=== PATIENT | female | born 1945 | race Asian ===

== ENCOUNTER 2020-09-28 09:21 | Outpatient (REF) | payer MEDICARE, OTHER, SELFPAY ==
[2020-09-28 11:23] LABS: MANUAL DIFF FLAG NO
[2020-09-28 11:40] LABS: Basophils Percent Auto 0.7 % (0-2); Eosinophils Absolute Auto 0.2 X10*3/uL (0.0-0.4); Hematocrit 35.8 % (37-47); Hemoglobin 11.3 g/dl (12.0-16.0); Imm Gran Abs Auto 0.02 X10*3/uL (0.00-0.03); Imm Gran Pct Auto 0.4 % (0.0-0.4); Lymphocytes Absolute Auto 1.7 X10*3/uL (1.2-4.9); Lymphocytes Percent Auto 30.5 % (20-40); Mean Corpuscular HGB Conc 31.6 g/dl (31.0-35.0); Mean Corpuscular Hemoglobin 27.2 pg (27.0-33.0); Mean Corpuscular Volume 86.3 fL (80-98); Mean Platelet Volume 10.5 fL (9.4-12.3); Monocytes Absolute Auto 0.4 X10*3/uL (0.1-1.2); Monocytes Percent Auto 7.2 % (2-11); Neutrophils Absolute Auto 3.3 X10*3/uL (2.0-8.3); Neutrophils Percent Auto 58.2 % (45-73); Platelet Count 318 X10*3/uL (160-400); Red Blood Count 4.15 X10*6/uL (4.20-5.50); Red Cell Distribution Width 13.4 % (11.0-16.0); White Blood Count 5.7 X10*3/uL (4.8-10.8)
[2020-09-28 11:55] LABS: Alanine Aminotransferase 21 U/L (0-31); Albumin Level 4.2 g/dL (3.5-5.0); Alkaline Phosphatase 110 U/L (39-117); Anion Gap 13 (12-20); Aspartate Amino Transferase 23 U/L (5-31); Bilirubin Total 0.6 mg/dL (0.0-1.0); Blood Urea Nitrogen 10 mg/dL (9-16); Calcium 9.6 mg/dL (8.4-10.2); Carbon Dioxide 26 mmol/L (22-29); Chloride 106 mmol/L (96-108); Cholesterol 197 mg/dL; Estimated Glomerular Filt Rate > 60; Glucose Fasting 89 mg/dL (60-99); HDL Cholesterol 73 mg/dL; LDL Cholesterol Calculated 107 mg/dl; Potassium 4.8 mmol/L (3.3-5.1); Sodium 140 mmol/L (135-145); Total Protein 7.1 g/dL (6.5-8.0); Triglycerides 89 mg/dL
[2020-09-28 12:17] LABS: Thyroid Stimulating Hormone 1.15 uIU/mL (0.32-4.0)
== END 2020-09-28 09:22 | disposition home or self-care (01) ==
LOC: HO.HMGCLDS 09:21
PROVIDERS: PCP Internal Medicine; Visit Provider Internal Medicine
DX: F41.8 Other specified anxiety disorders (principal); I10 Essential (primary) hypertension
CPT/HCPCS: 36415; 80053; 80061; 84443; 85025

== ENCOUNTER 2021-04-22 08:51 | Outpatient (REF) | payer MEDICARE, OTHER, SELFPAY ==
[2021-04-22 11:34] LABS: COVID-19 Test Positive (Negative)
== END 2021-04-22 08:52 | disposition home or self-care (01) ==
LOC: HO.LAB 08:51
PROVIDERS: Visit Provider Internal Medicine
DX: Z20.822 Contact with and (suspected) exposure to COVID-19 (principal)
CPT/HCPCS: 36415; 87635; C9803

== ENCOUNTER 2021-05-07 10:36 | Outpatient (REF) | payer MEDICARE, OTHER, SELFPAY ==
--- NOTE | ~2021-05-07 | XR_ITS ---
EXAMINATION: SINUS. CHEST. CLINICAL INFORMATION: Covid 19 condition. Pain. COMPARISON: None TECHNIQUE: 4 views sinus and 2 views chest. FINDINGS: Sinuses: There is normal aeration of paranasal sinuses without air-fluid level or mucoperiosteal thickening. The bony sinus foley are intact. The nasal septum appears midline with patent nasopharyngeal airway. Bilateral mastoid sinuses are clear. The bony orbits appears unremarkable as well. CHEST: The lungs are fairly well-expanded with a linear atelectasis in the lingula. Rest of lungs are clear. The heart size and pulmonary vascularity is normal. No gross bony abnormality seen. XR/XR chest 2V IMPRESSION: Linear atelectasis in the lingula. Rest of the lungs are clear. Unremarkable sinus exam.
--- NOTE | ~2021-05-07 | XR_ITS ---
EXAMINATION: SINUS. CHEST. CLINICAL INFORMATION: Covid 19 condition. Pain. COMPARISON: None TECHNIQUE: 4 views sinus and 2 views chest. FINDINGS: Sinuses: There is normal aeration of paranasal sinuses without air-fluid level or mucoperiosteal thickening. The bony sinus foley are intact. The nasal septum appears midline with patent nasopharyngeal airway. Bilateral mastoid sinuses are clear. The bony orbits appears unremarkable as well. CHEST: The lungs are fairly well-expanded with a linear atelectasis in the lingula. Rest of lungs are clear. The heart size and pulmonary vascularity is normal. No gross bony abnormality seen. XR/XR sinus min 3V IMPRESSION: Linear atelectasis in the lingula. Rest of the lungs are clear. Unremarkable sinus exam.
[2021-05-07 11:56] LABS: MANUAL DIFF FLAG NO
[2021-05-07 12:02] LABS: Basophils Percent Auto 0.4 % (0-2); Eosinophils Absolute Auto 0.1 X10*3/uL (0.0-0.4); Eosinophils Percent Auto 1.5 % (0-4); Hematocrit 34.7 % (37.0-47.0); Hemoglobin 11.2 g/dl (12.0-16.0); Imm Gran Abs Auto 0.03 X10*3/uL (0.00-0.03); Imm Gran Pct Auto 0.4 % (0.0-0.4); Lymphocytes Absolute Auto 1.5 X10*3/uL (1.2-4.9); Lymphocytes Percent Auto 20.5 % (20-40); Mean Corpuscular HGB Conc 32.3 g/dl (31.0-35.0); Mean Corpuscular Hemoglobin 27.5 pg (27.0-33.0); Mean Corpuscular Volume 85.3 fL (80.0-98.0); Mean Platelet Volume 9.1 fL (9.4-12.3); Monocytes Absolute Auto 0.5 X10*3/uL (0.1-1.2); Monocytes Percent Auto 6.7 % (2-11); Neutrophils Absolute Auto 5.2 x10*3/uL (2.0-8.3); Neutrophils Percent Auto 70.5 % (45-73); Platelet Count 430 X10*3/uL (160-400); Red Blood Count 4.07 X10*6/uL (4.20-5.50); Red Cell Distribution Width 13.1 % (11.0-16.0); White Blood Count 7.3 X10*3/uL (4.8-10.8)
[2021-05-07 12:30] LABS: Alanine Aminotransferase 27 U/L (0-31); Albumin Level 4.3 g/dL (3.5-5.0); Alkaline Phosphatase 97 U/L (39-117); Anion Gap 14 (12-20); Aspartate Amino Transferase 24 U/L (5-31); Bilirubin Total 0.3 mg/dL (0.0-1.0); Blood Urea Nitrogen 16 mg/dL (9-16); Calcium 9.5 mg/dL (8.4-10.2); Carbon Dioxide 21 mmol/L (22-29); Chloride 104 mmol/L (96-108); Estimated Glomerular Filt Rate > 60; Glucose Random 115 mg/dL (60-115); Potassium 4.1 mmol/L (3.3-5.1); Sodium 135 mmol/L (135-145); Total Protein 7.8 g/dL (6.5-8.0)
[2021-05-09 08:09] LABS: SARS COV2 IgG Positive (Negative)
== END 2021-05-07 10:37 | disposition home or self-care (01) ==
LOC: HO.XRAY 10:36
PROVIDERS: PCP Internal Medicine; Visit Provider Internal Medicine Pulmonary Disease
DX: U09.9 Post COVID-19 condition, unspecified (principal); J32.9 Chronic sinusitis, unspecified; Z20.822 Contact with and (suspected) exposure to COVID-19
CPT/HCPCS: 36415; 70220; 71046; 80053; 82785; 85025; 86003; 86769; 99202

== ENCOUNTER 2021-09-28 14:15 | Outpatient (REF) | payer MEDICARE, OTHER, SELFPAY ==
[2021-09-28 16:24] LABS: Alanine Aminotransferase 20 U/L (0-31); Albumin Level 4.4 g/dL (3.5-5.0); Alkaline Phosphatase 119 U/L (39-117); Anion Gap 15 (12-20); Aspartate Amino Transferase 25 U/L (5-31); Bilirubin Total 0.3 mg/dL (0.0-1.0); Blood Urea Nitrogen 21 mg/dL (9-16); Calcium 9.8 mg/dL (8.4-10.2); Carbon Dioxide 25 mmol/L (22-29); Chloride 104 mmol/L (96-108); Estimated Glomerular Filt Rate > 60; Glucose Random 111 mg/dL (60-115); Potassium 4.7 mmol/L (3.3-5.1); Sodium 139 mmol/L (135-145); Total Protein 7.7 g/dL (6.5-8.0)
[2021-09-28 16:25] LABS: Hematocrit 36.3 % (37.0-47.0); Hemoglobin 11.6 g/dl (12.0-16.0)
[2021-09-30 22:46] LABS: Immunoglobulin E 148 kU/L (<OR=114)
== END 2021-09-28 14:16 | disposition home or self-care (01) ==
LOC: HO.HMGCLDS 14:15
PROVIDERS: Internal Medicine Pulmonary Disease; PCP Internal Medicine; Visit Provider Internal Medicine
DX: D64.9 Anemia, unspecified (principal); I10 Essential (primary) hypertension; K21.9 Gastro-esophageal reflux disease without esophagitis; F41.8 Other specified anxiety disorders; U09.9 Post COVID-19 condition, unspecified
CPT/HCPCS: 36415; 80053; 82785; 85014; 85018

== ENCOUNTER 2021-10-27 09:38 | Outpatient (REF) | payer MEDICARE, OTHER, SELFPAY ==
--- NOTE | ~2021-10-27 | XR_ITS ---
EXAMINATION: XR FOOT, RIGHT CLINICAL INFORMATION: Pain COMPARISON: None TECHNIQUE: AP, lateral, and oblique views of the right foot. FINDINGS: Bone alignment is normal. No fracture or dislocation is seen. Joint spaces are normal. There are calcaneal spurs. Soft tissues are otherwise normal. XR/XR foot RT 2V IMPRESSION: Calcaneal spurs.
== END 2021-10-27 09:39 | disposition home or self-care (01) ==
LOC: HO.XRAY 09:38
PROVIDERS: PCP Internal Medicine; Visit Provider Internal Medicine
DX: M79.671 Pain in right foot (principal)
CPT/HCPCS: 73620

== ENCOUNTER 2022-07-20 10:20 | Outpatient (REF) | payer MEDICARE, OTHER, SELFPAY ==
[2022-07-20 11:39] LABS: MANUAL DIFF FLAG NO
[2022-07-20 11:54] LABS: Basophils Percent Auto 0.5 % (0-2); Eosinophils Absolute Auto 0.1 X10*3/uL (0.0-0.4); Eosinophils Percent Auto 2.1 % (0-4); Hematocrit 37.5 % (37.0-47.0); Hemoglobin 11.8 g/dl (12.0-16.0); Imm Gran Abs Auto 0.02 X10*3/uL (0.00-0.03); Imm Gran Pct Auto 0.3 % (0.0-0.4); Lymphocytes Absolute Auto 1.9 X10*3/uL (1.2-4.9); Lymphocytes Percent Auto 29.8 % (20-40); Mean Corpuscular HGB Conc 31.5 g/dl (31.0-35.0); Mean Corpuscular Hemoglobin 27.2 pg (27.0-33.0); Mean Corpuscular Volume 86.4 fL (80.0-98.0); Mean Platelet Volume 10.7 fL (9.4-12.3); Monocytes Absolute Auto 0.4 X10*3/uL (0.1-1.2); Monocytes Percent Auto 6.5 % (2-11); Neutrophils Absolute Auto 3.8 x10*3/uL (2.0-8.3); Neutrophils Percent Auto 60.8 % (45-73); Platelet Count 306 X10*3/uL (160-400); Red Blood Count 4.34 X10*6/uL (4.20-5.50); Red Cell Distribution Width 13.2 % (11.0-16.0); White Blood Count 6.3 X10*3/uL (4.8-10.8)
[2022-07-20 12:30] LABS: Alanine Aminotransferase 19 U/L (0-31); Albumin Level 4.4 g/dL (3.5-5.0); Alkaline Phosphatase 115 U/L (39-117); Anion Gap 12 (12-20); Aspartate Amino Transferase 20 U/L (5-31); Bilirubin Total 0.4 mg/dL (0.0-1.0); Blood Urea Nitrogen 16 mg/dL (9-16); Calcium 9.6 mg/dL (8.4-10.2); Carbon Dioxide 25 mmol/L (22-29); Chloride 107 mmol/L (96-108); Estimated Glomerular Filt Rate > 60; Glucose Random 118 mg/dL (60-115); Sodium 140 mmol/L (135-145); Total Protein 7.3 g/dL (6.5-8.0)
[2022-07-22 06:49] LABS: LDL Cholesterol Direct 115 mg/dL (<100)
== END 2022-07-20 10:21 | disposition home or self-care (01) ==
LOC: HO.HMGCLDS 10:20
PROVIDERS: Visit Provider Internal Medicine
DX: I10 Essential (primary) hypertension (principal); K21.9 Gastro-esophageal reflux disease without esophagitis; D64.9 Anemia, unspecified
CPT/HCPCS: 36415; 80053; 83721; 85025

== ENCOUNTER 2023-02-07 10:17 | Outpatient (AMB) | payer MEDICARE, OTHER, SELFPAY ==
--- NOTE | 2023-02-07 10:32 | A.OFFPC_ITS ---
Vital Signs 3 02/07/23 10:33 Height 5 ft 3 in Weight 166 lb 6 oz BMI 29.5 BP 150/84 H Blood Pressure Location Lt brachial Position Sitting Pulse 85 Pulse Source Pulse Oximeter Pulse Oximetry (%) 98 Oxygen Delivery Method Room Air Intake Visit Reasons: Leg/Hip Pain ~ Allergies codeine Allergy (Unknown, Verified 02/07/23 10:33) Unknown Aspirin Allergy (Unknown, Uncoded 06/27/22 15:03) stomach upset Medication List - Last Reconciled 02/07/23 by Natasha Moore MD cefaclor 500 mg PO Q8H 10 days ciprofloxacin HCl (Cipro) 500 mg PO BID 7 days losartan 100 mg PO DAILY 90 days Tobacco use date assessed: 02/07/23 Fall risk assessment: No Falls in past year Last assessed Fall Risk: 02/07/23 Dental Screening Dental Screen Date: 02/07/23 Did you have a dental visit in the last 12 months?: Yes Did you have a dental problem in the last 6 months where you did not have access to dental care?: No Was dental information given to patient?: Patient has dentist HPI Leg/Hip Pain ~ 2 HPI0 Details Patient is 77-year-old female came in today to talk about pain in her legs Patient says that she had a lot of visitors since summer and she has been climbing stairs multiple times during the day to ended in the casts No she is having pain both side of her legs which get better some days and worse the other days. She is also complaining of pain right side of her hips which also comes and goes. On examination patient does not have any pain at this time She is touching her thigh is as the site of pain and tells me that it feels tight and in spasms when she climbs stairs. I see that she is due for labs last set of lab was in June I have ordered labs to be done fasting Patient have an appointment for physical examination of this month she will return then for re-evaluation after the lab reports. She also tells me that when she takes vitamin-D and B12 she feels better. I have added the levels. [facility] Social History Housing: House Alcohol intake: never Patient Tobacco Use Status: Never used Tobacco e-Cigarette/Vaping Use: Never Used service: No Current occupational status: unemployed Cognitive needs: No Hearing needs: No Vision needs: No Questionnaire PHQ-9 Over the last 2 weeks, how often have you been bothered by any of the following problems? 1. Little interest or pleasure in doing things: not at all 2. Feeling down, depressed, or hopeless: not at all 3. Trouble falling or staying asleep, or sleeping too much: not at all 4. Feeling tired or having little energy: not at all 5. Poor appetite or overeating: not at all 6. Feeling bad about yourself - or that you are a failure or have let yourself or your family down: not at all 7. Trouble concentrating on things, such as reading the newspaper or watching television: not at all 8. Moving or speaking so slowly that other people could have noticed. Or the opposite - being so fidgety or restless that you have been moving around a lot more than usual: not at all 9. Thoughts that you would be better off or of hurting yourself in some way: not at all Total score: 0 Depression Screening Interpretation: Negative Depression Screening Done: Yes Source: Developed by Drs. Deep Chamberlain, Shannon Mckeon, Som Vásquez and colleagues, with an educational aleksandra from [employer]. Thrive Questionnaire Date Thrive assessed: 02/07/23 I am a: Patient What is your living situation today?: I have a steady place to live Within the past 12 months, did the food you bought not last and you didn't have the money to get more?: Never true Within the past 12 months, did you worry whether your food would run out before you got money to buy more?: Never true Do you have trouble paying for medicines?: No Do you have trouble getting transportation to medical appointments?: No Do you have trouble paying your heating and electricity bill?: No Do you have trouble taking care of your child, family member or friend?: No Do you have trouble with day-to-day activities such as bathing, preparing meals, shopping, managing finances, etc.?: No Are you currently unemployed and looking for a job?: No Are you interested in more education?: No AUDIT C Alcohol Use Questionnaire (AUDIT-C) 1. How often do you have a drink containing alcohol?: Never 3. How often do you have six or more drinks on one occasion?: Never Total Score: 0 Score Reviewed/Action Taken: Yes CELIA-7 AMB Questionnaire CELIA-7 Date CELIA - 7 assessed: 02/07/23 Feeling nervous, anxious, or on edge: 0 = Not at all Not being able to stop or control worryin = Not at all Worrying too much about different things: 0 = Not at all Trouble relaxin = Not at all Being so restless that it is hard to sit still: 0 = Not at all Becoming easily annoyed or irritable: 0 = Not at all Feeling afraid as if something awful might happen: 0 = Not at all Total CELIA-7 score (0-4 normal; 5-9 mild; 10-14 moderate; 15-21 severe): 0 Source: Developed by Drs. Deep Chamberlain, Shannon Mckeon, Som Vásquez and colleagues, with an educational aleksandra from [employer]. CELIA-7 Assessment Billing CELIA-7 Assessment Tool: CELIA-7 Assessment 05616 Review of Systems Const Denies chills and Denies fever(s) ENT Denies epistaxis and Denies nasal discharge Card Denies chest pain Resp Denies chest congestion, Denies cough and Denies hemoptysis GI Denies diarrhea and Denies nausea Skin/Breast Denies rash Neuro Reports no additional complaints Psych Reports no additional complaints Endo Reports no additional complaints Physical exam (Primary Care) Vital Signs: Last Vital Signs Pulse 85 02/07/23 10:33 BP 150/84 H 02/07/23 10:33 Pulse Ox 98 02/07/23 10:33 Oxygen Delivery Method Room Air 02/07/23 10:33 BMI result Body Mass Index 29.5 Tobacco/Smoking Status: Tobacco use Status Tobacco use date assessed 02/07/23 02/07/23 10:36 Patient Tobacco Use Status Never used Tobacco 02/07/23 10:36 e-Cigarette/Vaping Use Never Used 02/07/23 10:36 PHQ-9: PHQ-9 Score PHQ-9: Total score 0 02/07/23 11:05 Depression Screening Interpretation: Negative Thrive Assessment: Date of Thrive Assessment Date Thrive assessed 02/07/23 02/07/23 11:05 Const General: cooperative, comfortable and no acute distress Orientation/consciousness: patient oriented x3 [facility] Head: Yes normocephalic Eyes General: appearance normal, both eyes and all related structures Neck Neck: Yes supple Resp Effort & Inspection: normal respiratory effort, no cough and no stridor Cardio Rhythm: regular rhythm Heart sounds: S1 normal heart sound present and S2 normal heart sound present Skin General skin exam: turgor normal Neuro General: patient oriented x3, tone normal and moves all extremities Extrem Other: Slight limitation in hip joints Elbow/forearm/wrist images: 2 1. Side of discomfort 2. Side of discomfort Right lower extremity: no edema Left lower extremity: no edema Assessment and Plan Assessment & Plan (1) Hypertension, essential: Code(s): I10 - Essential (primary) hypertension (2) Low hemoglobin: Code(s): D64.9 - Anemia, unspecified (3) GERD (gastroesophageal reflux disease): Code(s): K21.9 - Gastro-esophageal reflux disease without esophagitis Qualifiers: Esophagitis presence: without esophagitis Qualified Code(s): K21.9 - Gastro-esophageal reflux disease without esophagitis (4) Leg pain, bilateral: Code(s): M79.604 - Pain in right leg; M79.605 - Pain in left leg (5) Muscle soreness: Code(s): M79.10 - Myalgia, unspecified site (6) Hip pain, bilateral: Code(s): M25.551 - Pain in right hip; M25.552 - Pain in left hip Plan Patient is 77-year-old female came in today to talk about pain in her legs Patient says that she had a lot of visitors since summer and she has been climbing stairs multiple times during the day to ended in the casts No she is having pain both side of her legs which get better some days and worse the other days. She is also complaining of pain right side of her hips which also comes and goes. On examination patient does not have any pain at this time She is touching her thigh is as the site of pain and tells me that it feels tight and in spasms when she climbs stairs. I see that she is due for labs last set of lab was in June I have ordered labs to be done fasting Patient have an appointment for physical examination of this month she will return then for re-evaluation after the lab reports. She also tells me that when she takes vitamin-D and B12 she feels better. I have added the levels. Patient is also hypertensive and her blood pressure is slightly elevated today at 150/84 she is taking losartan regularly We will we checked that at her upcoming appointment GERD is stable. Patient is also slightly anemic and need CBC Orders: Orders 2 Comprehensive Qulin. Panel Fast Today D64.9 - Anemia, unspecified, I10 - Essential (primary) hypertension, K21.9 - Gastro-esophageal reflux disease without esophagitis, M79.604 - Pain in right leg, M79.605 - Pain in left leg Lipid Panel Today D64.9 - Anemia, unspecified, I10 - Essential (primary) hypertension, K21.9 - Gastro-esophageal reflux disease without esophagitis, M79.604 - Pain in right leg, M79.605 - Pain in left leg Vitamin D 25-OH (D2 and D3) Today D64.9 - Anemia, unspecified, I10 - Essential (primary) hypertension, K21.9 - Gastro-esophageal reflux disease without esophagitis, M79.604 - Pain in right leg, M79.605 - Pain in left leg XR hips SONIA min 3V Today M25.551 - Pain in right hip, M25.552 - Pain in left hip Complete Blood Count Auto Diff Today D64.9 - Anemia, unspecified, I10 - Essential (primary) hypertension, K21.9 - Gastro-esophageal reflux disease without esophagitis, M79.604 - Pain in right leg, M79.605 - Pain in left leg Vitamin B12 Today D64.9 - Anemia, unspecified, I10 - Essential (primary) hypertension, K21.9 - Gastro-esophageal reflux disease without esophagitis, M79.604 - Pain in right leg, M79.605 - Pain in left leg TSH reflex Free T4 Today D64.9 - Anemia, unspecified, I10 - Essential (primary) hypertension, K21.9 - Gastro-esophageal reflux disease without esophagitis, M79.604 - Pain in right leg, M79.605 - Pain in left leg Creatine Kinase Total Today M79.10 - Myalgia, unspecified site Lactate Dehydrogenase Today M79.10 - Myalgia, unspecified site Medications: Discontinued 2 ciprofloxacin HCl (Cipro) Discontinued Reason: Doctor's Order 500 mg PO BID 7 days 14 tabs 0RF ENTERITIS cefaclor Discontinued Reason: Doctor's Order 500 mg PO Q8H 10 days 30 caps 1RF Gingivitis Coding Level of Care Code Est Pt Level 4 (82754) Diagnoses Hypertension, essential I10 Low hemoglobin D64.9 Gastroesophageal reflux disease without esophagitis K21.9 Esophagitis presence: without esophagitis Leg pain, bilateral M79.604; M79.605 Muscle soreness M79.10 Hip pain, bilateral M25.551; M25.552 Additional Codes CELIA-7 Assessment Billing - CELIA-7 Assessment Tool: CELIA-7 Assessment 27068 ([id number])
[2023-02-07 10:33] VITALS: BP 150/84; PULSE 85; O2SAT 98; BMI 29.5
== END 2023-02-07 11:38 | disposition home or self-care (01) ==
PROVIDERS: PCP Internal Medicine; Visit Provider Internal Medicine
DX: I10 Essential (primary) hypertension (principal); D64.9 Anemia, unspecified; K21.9 Gastro-esophageal reflux disease without esophagitis; M79.604 Pain in right leg; M79.605 Pain in left leg; M79.10 Myalgia, unspecified site; M25.551 Pain in right hip; M25.552 Pain in left hip
CPT/HCPCS: 99214

== ENCOUNTER 2023-02-14 09:04 | Outpatient (REF) | payer MEDICARE, OTHER, SELFPAY ==
--- NOTE | ~2023-02-14 | XR_ITS ---
EXAMINATION: XR BILATERAL HIPS WITH AP PELVIS CLINICAL INFORMATION: Pain in right hip COMPARISON: None available. TECHNIQUE: 4 views total, AP and lateral of each hip FINDINGS: Degenerative changes in the partially imaged lower lumbar spine. Right hip: Mild degenerative changes with joint space narrowing and hypertrophic change right hip. Alignment maintained. Bones are diffusely demineralized. Left hip: Mild degenerative changes with joint space narrowing and hypertrophic change in the left hip. Alignment maintained. Bones are diffusely demineralized. XR/XR hips SONIA min 3V IMPRESSION: Mild degenerative changes in the bilateral hips. Additional imaging with CT scan or MRI should be considered for better visualization as these modalities are much more sensitive for detection of fracture or other underlying pathology.
[2023-02-14 11:27] LABS: MANUAL DIFF FLAG NO
[2023-02-14 11:45] LABS: Basophils Absolute Auto 0.1 X10*3/uL (0.0-0.2); Basophils Percent Auto 1.1 % (0-2); Eosinophils Absolute Auto 0.2 X10*3/uL (0.0-0.4); Eosinophils Percent Auto 2.7 % (0-4); Hematocrit 37.5 % (37.0-47.0); Hemoglobin 11.7 g/dl (12.0-16.0); Imm Gran Abs Auto 0.01 X10*3/uL (0.00-0.03); Imm Gran Pct Auto 0.2 % (0.0-0.4); Lymphocytes Absolute Auto 1.7 X10*3/uL (1.2-4.9); Lymphocytes Percent Auto 31.7 % (20-40); Mean Corpuscular HGB Conc 31.2 g/dl (31.0-35.0); Mean Corpuscular Hemoglobin 26.7 pg (27.0-33.0); Mean Corpuscular Volume 85.6 fL (80.0-98.0); Mean Platelet Volume 10.9 fL (9.4-12.3); Monocytes Absolute Auto 0.4 X10*3/uL (0.1-1.2); Monocytes Percent Auto 6.9 % (2-11); Neutrophils Absolute Auto 3.2 x10*3/uL (2.0-8.3); Neutrophils Percent Auto 57.4 % (45-73); Platelet Count 304 X10*3/uL (160-400); Red Blood Count 4.38 X10*6/uL (4.20-5.50); Red Cell Distribution Width 13.4 % (11.0-16.0); White Blood Count 5.5 X10*3/uL (4.8-10.8)
[2023-02-14 12:25] LABS: Vitamin B12 884 pg/mL (200-900)
[2023-02-14 12:28] LABS: Alanine Aminotransferase 20 U/L (0-31); Albumin Level 4.4 g/dL (3.5-5.0); Alkaline Phosphatase 108 U/L (39-117); Anion Gap 15 (12-20); Aspartate Amino Transferase 21 U/L (5-31); Bilirubin Total 0.4 mg/dL (0.0-1.0); Blood Urea Nitrogen 15 mg/dL (9-16); Calcium 9.9 mg/dL (8.4-10.2); Carbon Dioxide 22 mmol/L (22-29); Chloride 106 mmol/L (96-108); Cholesterol 214 mg/dL (<200); Estimated Glomerular Filt Rate > 60; Glucose Fasting 97 mg/dL (60-99); HDL Cholesterol 77 mg/dL (>40); LDL Cholesterol Calculated 122 mg/dL (<100); Lactate Dehydrogenase 256 U/L (122-220); Potassium 4.5 mmol/L (3.3-5.1); Sodium 138 mmol/L (135-145); Total Protein 7.9 g/dL (6.5-8.0); Triglycerides 77 mg/dL (<150)
[2023-02-14 12:32] LABS: TSH reflex Free T4 1.04 uIU/mL (0.32-4.0)
[2023-02-19 16:33] LABS: Vitamin D 25-OH, D2 <4 ng/mL; Vitamin D 25-OH, D3 34 ng/mL; Vitamin D 25-OH, Total 34 ng/mL (30-100)
== END 2023-02-14 09:05 | disposition home or self-care (01) ==
LOC: HO.HMGCX 09:04
PROVIDERS: PCP Internal Medicine; Visit Provider Internal Medicine
DX: M25.551 Pain in right hip (principal); M25.552 Pain in left hip; M79.604 Pain in right leg; M79.605 Pain in left leg; M79.10 Myalgia, unspecified site; I10 Essential (primary) hypertension; D64.9 Anemia, unspecified; K21.9 Gastro-esophageal reflux disease without esophagitis
CPT/HCPCS: 36415; 73522; 80053; 80061; 82306; 82550; 82607; 83615; 84443; 85025

== ENCOUNTER 2023-02-21 11:11 | Outpatient (AMB) | payer MEDICARE, OTHER, SELFPAY ==
[2023-02-21 11:13] VITALS: BP 140/70; PULSE 77; O2SAT 99; BMI 29.2
--- NOTE | 2023-02-21 11:13 | AM.OFFVISMDC ---
Intake Vital Signs 02/21/23 11:13 Height 5 ft 3 in Weight 165 lb 2 oz BMI 29.2 BP 140/70 H Blood Pressure Location Rt brachial Position Sitting Pulse 77 Pulse Source Pulse Oximeter Pulse Oximetry (%) 99 Oxygen Delivery Method Room Air Intake Visit Reasons: SWV G0439 Allergies codeine Allergy (Unknown, Verified 02/21/23 11:13) Unknown Aspirin Allergy (Unknown, Uncoded 06/27/22 15:03) stomach upset Medication List - Last Reconciled 02/21/23 by Natasha Moore MD losartan 100 mg PO DAILY 90 days HPI SWV G0439 HPI Details Continued to have soreness in her thigh muscles. Patient says that it is better than before but still sore Labs done recently showed elevated LDH and CPK levels Patient was instructed to drink plenty of water for next 2 weeks and repeat labs again HPI Comments History of Present Illness Details AWV Medical/social history reviewed Past medical history reviewed [place] of care / care team list updated Surgical/ hospitalization history reviewed Current medications including OTC and supplements reviewed Family history reviewed Tobacco controlled form updated Alcohol use form updated Illicit drug use in social history reviewed Current diagnosis of depression ?screening updated Appropriate PHQ 2/PHQ-9 completed . Vital signs reviewed Alcohol tobacco drug use reviewed and discussed . MMSE completed . ? Fall risk: ?Assessed Fall history: ?None Have you had any falls with injury in the past year?? No Have you had 2 or more falls in the past year?? No Fall risk assessment completed Home safety discussed with the patient Functional ability assessed and discussed and documented Activities of daily living reviewed and appropriate actions taken . HRA filled out by the patient reviewed by provider and scanned . Appropriate written screening schedule established . Any health advise needed provided . Advance care planning , last forms in the chart, healthcare proxy paperwork handed to patient Examination IPPE/AWE: Balance : Romberg failed Tandem walk failed walk-in turn intact rise from sit to stand intact . ?Hearing ?whisper test failed , . Medication list reviewed, patient is stable on medications All other providers patient is seeing discussed and noted . [facility] Social History Housing: House Alcohol intake: never Patient Tobacco Use Status: Never used Tobacco e-Cigarette/Vaping Use: Never Used service: No Current occupational status: unemployed Cognitive needs: No Hearing needs: No Vision needs: No Questionnaire Medicare Wellness Checkup [age] What gender do you identify with?: female During the past 4 weeks, how much have you been bothered by emotional problems such as feeling anxious, depressed, irritable, sad or downhearted, and blue?: not at all During the past 4 weeks, has your physical & emotional health limited your social activities with family, friends, neighbors, or groups?: slightly During the past 4 weeks, how much bodily pain have you generally had?: very mild pain During the past 4 weeks, was someone available to help you if you needed & wanted help?: no, not at all During the past 4 weeks, what was the hardest physical activity you could do for at least 2 minutes?: heavy Can you get to places out of walking distance without help? (For eg., can you travel alone on buses, taxis or drive your car?): Yes Can you go shopping for groceries or clothes without someone's help?: Yes Can you prepare your own meals?: Yes Can you do your housework without help?: Yes Because of any health problems, do you need the help of another person with your personal care needs such as eating, bathing, dressing or getting around the house?: No Can you handle your own money without help?: Yes During the past 4 weeks, how would you rate your health in general?: good During the past 4 weeks how have things been going for you?: pretty well Are you having difficulties driving your car?: not applicable, I don't use a car During past 4 weeks, have you been bothered by the following: never: Falling or dizzy when standing up, Sexual problems?, Trouble eating well?, Teeth or denture problems?, Problems using the telephone? and Tiredness or fatigue? Have you fallen 2 or more times in the past year?: No Are you afraid of falling?: No Are you a smoker?: no During the past 4 weeks, how many drinks of wine, beer, or other alcoholic beverages did you have?: no alcohol at all Do you exercise for about 20 minutes 3 or more times a week?: no, I usually do not exercise this much Have you been given information to help with the following?: no: Hazards in your house that might hurt you? and no: Keeping track of your medications? How often do you have trouble taking medicines the way you have been told to take them?: I always take medicine as prescribed How confident are you that you can control & manage most of your health problems?: very confident What is your race?: Mini Mental State Exam (MMSE) Orientation What is the (year) (season) (date) (day) (month)?: year, season, date, day and month Where are we (state) (county) (town or city) (hospital) (floor)?: state, county, town or city, hospital/clinic and floor Score Score: 10 Activity of Daily Living Bathing - sponge bath, tub bath or shower: receives no assistance (gets in/out by self, if usual bathing means Dressing - getting clothes from closets & drawers, including inner/outer garments & fasteners.: gets clothes & gets completely dressed without help Toileting - going to the 'toilet room' for urine/bowel elimination & cleaning self/arranging clothes: goes to toilet room, cleans self, arranges clothes without help Transfer: moves in & out of bed and chair without help (may use support object) Continence: controls urination/bowel movements completely by self Feeding: feeds self without help Total Score: 0 Information obtained from: patient Using telephone: independent Traveling: independent Shopping: independent Preparing meals: independent Housework: independent Taking medicine: independent Managing money: independent PHQ-9 Over the last 2 weeks, how often have you been bothered by any of the following problems? 1. Little interest or pleasure in doing things: not at all 2. Feeling down, depressed, or hopeless: not at all 3. Trouble falling or staying asleep, or sleeping too much: not at all 4. Feeling tired or having little energy: not at all 5. Poor appetite or overeating: not at all 6. Feeling bad about yourself - or that you are a failure or have let yourself or your family down: not at all 7. Trouble concentrating on things, such as reading the newspaper or watching television: not at all 8. Moving or speaking so slowly that other people could have noticed. Or the opposite - being so fidgety or restless that you have been moving around a lot more than usual: not at all 9. Thoughts that you would be better off or of hurting yourself in some way: not at all Total score: 0 Depression Screening Interpretation: Negative Depression Screening Done: Yes 91512 - PHQ-9 Billing: Yes Source: Developed by Drs. Deep Chamberlain, Shannon Mckeon, Som Vásquez and colleagues, with an educational aleksandra from [employer]. Review of Systems Const Denies chills and Denies fever(s) ENT Denies epistaxis and Denies nasal discharge Card Denies chest pain Resp Denies chest congestion, Denies cough and Denies hemoptysis GI Denies diarrhea and Denies nausea Skin/Breast Denies rash Neuro Reports no additional complaints Psych Reports no additional complaints Endo Reports no additional complaints Physical Exam Vital Signs: Last Vital Signs Pulse 77 02/21/23 11:13 BP 140/70 H 02/21/23 11:13 Pulse Ox 99 02/21/23 11:13 Oxygen Delivery Method Room Air 02/21/23 11:13 BMI result Body Mass Index 29.2 Const General: cooperative, comfortable and no acute distress Orientation/consciousness: patient oriented x3 HEENT Head: Yes normocephalic Eyes General: appearance normal, both eyes and all related structures Neck Other: Supple Neck: Yes supple Resp Effort & Inspection: normal respiratory effort, no cough and no stridor Cardio Rhythm: regular rhythm Heart sounds: S1 normal heart sound present and S2 normal heart sound present Skin General skin exam: turgor normal Neuro Other: Motor sensory intact General: patient oriented x3, tone normal and moves all extremities Extrem Other: No lower extremity swelling. Right lower extremity: no edema Left lower extremity: no edema Psych Other: Normal effect, speech clear Assessment & Plan Assessment & Plan (1) Medicare annual wellness visit, subsequent: Code(s): Z00.00 - Encounter for general adult medical examination without abnormal findings (2) Muscle soreness: Code(s): M79.10 - Myalgia, unspecified site (3) Elevated LDH: Code(s): R74.02 - Elevation of levels of lactic acid dehydrogenase [LDH] (4) Elevated CPK: Code(s): R74.8 - Abnormal levels of other serum enzymes Plan Continued to have soreness in her thigh muscles. Patient says that it is better than before but still sore Labs done recently showed elevated LDH and CPK levels Patient was instructed to drink plenty of water for next 2 weeks and repeat labs again Orders: Orders Lactate Dehydrogenase Today M79.10 - Myalgia, unspecified site, R74.02 - Elevation of levels of lactic acid dehydrogenase [LDH], R74.8 - Abnormal levels of other serum enzymes Creatine Kinase Total Today M79.10 - Myalgia, unspecified site, R74.02 - Elevation of levels of lactic acid dehydrogenase [LDH], R74.8 - Abnormal levels of other serum enzymes CRP High Sensitivity Today M79.10 - Myalgia, unspecified site, R74.02 - Elevation of levels of lactic acid dehydrogenase [LDH], R74.8 - Abnormal levels of other serum enzymes Medications: Refilled losartan 100 mg PO DAILY 90 days 90 tabs 0RF Quality Reporting (2019) Depression/Bipolar (159/160/161/177) PHQ-9: Total score: 0 Coding Level of Care Code Medicare Subsequent (G0439) Est Pt Level 3 (47297) Diagnoses Medicare annual wellness visit, subsequent Z00.00 Muscle soreness M79.10 Elevated LDH R74.02 Elevated CPK R74.8 CPT Codes Advance Care Planning - Advance Care Planning discussion: On file, no changes ([id number]) Advance Care Planning Advance Care Planning discussion: On file, no changes
== END 2023-02-21 15:51 | disposition home or self-care (01) ==
PROVIDERS: Visit Provider Internal Medicine
DX: Z00.00 Encounter for general adult medical examination without abnormal findings (principal); M79.10 Myalgia, unspecified site; R74.02 Elevation of levels of lactic acid dehydrogenase [LDH]; R74.8 Abnormal levels of other serum enzymes
CPT/HCPCS: 1123F; G0439

== ENCOUNTER 2023-05-25 09:50 | Outpatient (REF) | payer OTHER, MEDICARE, SELFPAY ==
--- NOTE | ~2023-05-25 | XR_ITS ---
EXAMINATION: XR LUMBOSACRAL SPINE CLINICAL INFORMATION: Right hip pain. COMPARISON: None available. TECHNIQUE: AP and lateral views of the lumbar spine and lateral view of the lumbosacral junction. FINDINGS: There is bony demineralization. At L4-L5, there is a 3 mm anterolisthesis. At L5-S1, there is marked disc space narrowing, with vacuum disc phenomenon. There is multi-level mild thoracolumbar spondylosis. There is facet arthropathy at L4-L5 and L5-S1. An L5 spondylolysis defect is questioned. There are aortoiliac atherosclerotic calcifications. XR/XR lumbar spine 2-3V IMPRESSION: 1. There is mild degenerative disc disease at L4-L5, and marked degenerative disc disease is seen at L5-S1. 2. There is multi-level mild thoracolumbar spondylosis. 3. There is facet arthropathy at L4-L5 and L5-S1. 4. An L5 spondylolysis defect is questioned.
--- NOTE | ~2023-05-25 | XR_ITS ---
EXAMINATION: XR HIP, RIGHT CLINICAL INFORMATION: Pain. COMPARISON: Radiographs dated 02/14/2023. TECHNIQUE: AP and frog-leg lateral views of the right hip. FINDINGS: No fracture. Alignment is anatomic. Hip joint space is maintained. Soft tissues are unremarkable. XR/XR hip RT min 2V IMPRESSION: Normal right hip.
== END 2023-05-25 09:51 | disposition home or self-care (01) ==
LOC: HO.HMGCX 09:50
PROVIDERS: PCP Internal Medicine; Visit Provider Internal Medicine
DX: M25.551 Pain in right hip (principal); M25.552 Pain in left hip; M54.50 Low back pain, unspecified
CPT/HCPCS: 72100; 73502

== ENCOUNTER 2023-05-31 13:01 | Outpatient (AMB) | payer OTHER, MEDICARE, SELFPAY ==
--- NOTE | 2023-05-31 13:09 | A.OFFVIS_ITS ---
Intake Vital Signs 05/31/23 13:11 Height 5 ft 3 in Weight 168 lb 3.403 oz BMI 29.8 BP 140/70 H Blood Pressure Location Lt brachial Position Sitting Pulse 115 H Pulse Source Pulse Oximeter Temp 96.8 F Temp Source Skin Pulse Oximetry (%) 97 Intake Visit Reasons: Myalgia Intake Note: New pt presents today for consult. She is accompanied by her Autumn. He reports patient is experiencing pain in her leg muscles and joints; difficulty walking. He states pain in lower extremity started approx 3 weeks ago after she did some heavy lifting. He also reports pt has stiffness in her back; his clinical impression is lumbar strain with sciatica; requesting order for MRI lumbar. Patient reports tenderness/pain in feet. Vessel Traffic Officer Required: No Accompanied by: Self / Same As Patient Allergies codeine Allergy (Unknown, Verified 05/31/23 13:20) Unknown Aspirin Allergy (Unknown, Uncoded 05/31/23 13:20) stomach upset HPI HPI Comments History of Present Illness Details Mrs. Leyva, 77 yoF comes to the office today for evaluation of right lower leg pain and numbness. She has been experiencing this for the past four or so months. It was improved on a medrol-dose pac but the pain to thigh muscle and lower lateral leg remains and the numbness makes it hard to walk. She has done lumbar xrays which shows mild OA. She reports she is very sensitive to medication and NSAIDs hurt abdomen causes discomfort to her GI systems. [facility] Medical History (Updated 06/01/23 @ 12:26 by FREDY Jc-PRIYA) Screening for osteoporosis Lumbar back pain with radiculopathy affecting right lower extremity Numbness and tingling of right lower extremity Lower extremity pain, right Social History Housing: House Alcohol intake: never Patient Tobacco Use Status: Never used Tobacco e-Cigarette/Vaping Use: Never Used service: No Current occupational status: unemployed Cognitive needs: No Hearing needs: No Vision needs: No Review of Systems Const All systems reviewed & are unremarkable except as noted in HPI and below Physical Exam Vital Signs: Last Vital Signs Temp 96.8 F 05/31/23 13:11 Pulse 115 H 05/31/23 13:11 BP 140/70 H 05/31/23 13:11 Pulse Ox 97 05/31/23 13:11 BMI result Body Mass Index 29.8 APPEARANCE: Patient in no acute distress, groomed nourished EYES no redness, eyelids normal EARS:? External ear normal NOSE/SINUS:? Airflow through both nares, no nasal discharge, no bleeding THROAT:? Oral mucosa moist, no ulcerations HEART:? Regular rhythm, S1-S2 heard, no murmurs, rubs or gallops. LUNG:? Clear to percussion and auscultation EXTREMITIES:? No edema, no calf tenderness, normal peripheral pulses. NEURO:? Oriented and alert x3.? No focal weakness.? Reflexes symmetric.? Gait normal. SKIN:? There are no skin lesions evident. No objective signs of Raynaud's phenomenon. JOINT EXAM: ?Cervical Spine:.? Full range of motion without pain; no tenderness. Thoracic Spine:.?possible senile kyphosis. ? No tenderness on palpation. Lumbar Spine:.? Alignment normal.? mild tenderness to right buttocks Chest Wall:.? No tenderness, swelling, increased warmth or erythema. Hands:.? Normal pain-free range of motion without tenderness, swelling, increased warmth or erythema. Wrists:.? Normal pain-free range of motion without tenderness, swelling, increased warmth or erythema. Elbows:. Normal pain-free range of motion without tenderness, swelling, increased warmth or erythema. Shoulders:.?? Full range of motion without pain. No tenderness, weakness, swelling, increased warmth or erythema. Hip bursa:.? No tenderness. Knees:.?? Normal pain-free range of motion without tenderness, swelling, increased warmth or erythema.? There is no effusion or crepitation Ankles:.? Normal pain-free range of motion without tenderness, swelling, increased warmth or erythema. Feet:.? Normal pain-free range of motion without swelling, increased warmth or erythema. ? tenderness to right lateral lower leg Results Reviewed Results Reviewed: Ordering Physician: Natasha Moore MD Date of Service: 10/27/21 Procedure(s): XR foot RT 2V Accession Number(s): [id number] cc: Natasha Moore MD~ EXAMINATION: XR FOOT, RIGHT CLINICAL INFORMATION: Pain COMPARISON: None TECHNIQUE: AP, lateral, and oblique views of the right foot. FINDINGS: Bone alignment is normal. No fracture or dislocation is seen. Joint spaces are normal. There are calcaneal spurs. Soft tissues are otherwise normal. XR/XR foot RT 2V IMPRESSION: Calcaneal spurs. Ordering Physician: Natasha Moore MD Date of Service: 05/25/23 Procedure(s): XR lumbar spine 2-3V Accession Number(s): [id number] cc: Natasha Moore MD~ EXAMINATION: XR LUMBOSACRAL SPINE CLINICAL INFORMATION: Right hip pain. COMPARISON: None available. TECHNIQUE: AP and lateral views of the lumbar spine and lateral view of the lumbosacral junction. FINDINGS: There is bony demineralization. At L4-L5, there is a 3 mm anterolisthesis. At L5-S1, there is marked disc space narrowing, with vacuum disc phenomenon. There is multi-level mild thoracolumbar spondylosis. There is facet arthropathy at L4-L5 and L5-S1. An L5 spondylolysis defect is questioned. There are aortoiliac atherosclerotic calcifications. XR/XR lumbar spine 2-3V IMPRESSION: 1. There is mild degenerative disc disease at L4-L5, and marked degenerative disc disease is seen at L5-S1. 2. There is multi-level mild thoracolumbar spondylosis. 3. There is facet arthropathy at L4-L5 and L5-S1. 4. An L5 spondylolysis defect is questioned. Ordering Physician: Natasha Moore MD Date of Service: 02/14/23 Procedure(s): XR hips SONIA min 3V Accession Number(s): [id number] cc: Natasha Moore MD~ EXAMINATION: XR BILATERAL HIPS WITH AP PELVIS CLINICAL INFORMATION: Pain in right hip COMPARISON: None available. TECHNIQUE: 4 views total, AP and lateral of each hip FINDINGS: Degenerative changes in the partially imaged lower lumbar spine. Right hip: Mild degenerative changes with joint space narrowing and hypertrophic change right hip. Alignment maintained. Bones are diffusely demineralized. Left hip: Mild degenerative changes with joint space narrowing and hypertrophic change in the left hip. Alignment maintained. Bones are diffusely demineralized. XR/XR hips SONIA min 3V IMPRESSION: Mild degenerative changes in the bilateral hips. Additional imaging with CT scan or MRI should be considered for better visualization as these modalities are much more sensitive for detection of fracture or other underlying pathology. Laboratory Tests 02/14/23 09:11 WBC 5.5 RBC 4.38 Hgb 11.7 L Lactate Dehydrogenase 256 H Total Creatine Kinase 166 H 25-OH Vitamin D Total 34 TSH 1.04 Assessment & Plan Assessment & Plan (1) Lower extremity pain, right: Code(s): M79.604 - Pain in right leg (2) Lower back pain: Code(s): M54.50 - Low back pain, unspecified Qualifiers: Back pain laterality: right Chronicity: chronic Sciatica laterality: sciatica of right side Sciatica presence: with sciatica Qualified Code(s): M54.41 - Lumbago with sciatica, right side; G89.29 - Other chronic pain (3) Lumbar back pain with radiculopathy affecting right lower extremity: Code(s): M54.16 - Radiculopathy, lumbar region (4) Screening for osteoporosis: Code(s): Z13.820 - Encounter for screening for osteoporosis Plan #Lower Back Pain with Radiculopathy/Foot pain: Mrs. Leyva here for evaluation of lower back and right lower extremity pain and weakness. She does not have much in the way of joint pain but her lower back and right leg are bothersome. Xray shows mild degenerative disc disease at L4-L5, and marked degenerative disc disease is seen at L5-S1. Given the severe L5-S1 DDD, I suspect this is contributing to the radiculopathy to the right lower leg, causing thigh numbness and leg weakness and lateral lower leg pain. I think the patient would benefit from an EMG study and MRI of the lumbar to further evaluate. Her gait is affected by the pain to the right leg and the numbness she describes to the right thigh. I think this puts her at increased risk for fall and this is concerning also, because an earlier Hip Xray describes that the hip joints/bones are diffusely demineralized, suggesting possible Osteopenia/Osteoporosis. Her lower leg pain was helped by Medrol dose pack in the past, so I think it is reasonable to order that to help with management at this time. She is currently on Gabapentin, but she denies any benefit to her lower leg pain and the numbness in the thigh. PT can be considered after imaging. #Osteoporosis Screening: Given her altered gait due to pain and numbness, she is at increased risk for falls. I discussed with patient to be careful to prevent falls due to increase risk for hip fracture. It is likely that she has been evaluated for osteoporosis, but I will follow-up with PCP for any recent Bone Density scans. I spent 40 minutes reviewing history, evaluating patient Orders: Orders NE electromyogram (EMG) 05/31/23 M54.50 - Low back pain, unspecified, M79.604 - Pain in right leg, R20.0 - Anesthesia of skin, R20.2 - Paresthesia of skin MR lumbar spine wo con 05/31/23 M54.16 - Radiculopathy, lumbar region Medications: New methylprednisolone (Medrol (Giles)) PO PER PKG DIR for 6 days 21 ea 2RF Coding Level of Care Code New Pt Level 4 (49285) Diagnoses Lower extremity pain, right M79.604 Chronic right-sided low back pain with right-sided sciatica M54.41; G89.29 Back pain laterality: right Chronicity: chronic Sciatica laterality: sciatica of right side Sciatica presence: with sciatica Lumbar back pain with radiculopathy affecting right lower extremity M54.16 Screening for osteoporosis Z13.820
[2023-05-31 13:11] VITALS: BP 140/70; PULSE 115; TEMP 36; O2SAT 97; BMI 29.8
== END 2023-05-31 13:57 | disposition home or self-care (01) ==
PROVIDERS: PCP Internal Medicine; Visit Provider Nurse Practitioner Family
DX: M79.604 Pain in right leg (principal); M54.41 Lumbago with sciatica, right side; G89.29 Other chronic pain; M54.16 Radiculopathy, lumbar region; Z13.820 Encounter for screening for osteoporosis
CPT/HCPCS: 99204

== ENCOUNTER → 2023-05-31 13:01 | Outpatient (BNVA) | payer OTHER, MEDICARE, SELFPAY | PROVIDERS: PCP Internal Medicine; Visit Provider Nurse Practitioner Family | DX: M79.604 Pain in right leg (principal); M54.41 Lumbago with sciatica, right side; M54.16 Radiculopathy, lumbar region; G89.29 Other chronic pain; Z13.820 Encounter for screening for osteoporosis | CPT/HCPCS: 99202 ==

== ENCOUNTER 2023-06-01 14:18 | Outpatient (REF) | payer OTHER, MEDICARE, SELFPAY ==
--- NOTE | ~2023-06-01 | MR_ITS ---
EXAMINATION: MR LUMBAR SPINE WITHOUT CONTRAST CLINICAL INFORMATION: Right lower extremity pain and numbness. COMPARISON: Lumbar spine radiographs 05/25/2023. TECHNIQUE: MRI of the lumbar spine was obtained using routine sequences without contrast. FINDINGS: There is degenerative spinal scoliosis with a subtle leftward convex curvature of the lumbar spine. Grade 1 anterolisthesis of L4 on L5. Vertebral heights are preserved. No acute bone marrow signal changes. There is loss of intervertebral disc height and T2 signal intensity at L5-S1 related to disc degeneration. Disc desiccation visualized at multiple additional levels. The tip of the conus medullaris is located at L1-L2. No mass effect on the conus. Visualized distal cord signal intensity is normal. At L1-L2 the annular contour is normal. No canal stenosis. No mass effect on the traversing or foraminal nerve roots. At L2-L3 the annular contour is normal. No canal stenosis. No mass effect on the traversing or foraminal nerve roots. At L3-L4 there is a slightly bulging disc. No canal stenosis. No mass effect on the traversing or foraminal nerve roots. At L4-L5 there is a to disc bulge. Advanced bilateral facet degenerative change. Severe canal stenosis. No foraminal nerve root compression. At L5-S1 there is an asymmetrically bulging disc to the right. Bilateral facet degenerative change. No canal stenosis. Subtle abutment of the right traversing S1 nerve roots. No foraminal nerve root compression. Limited visualization of the retroperitoneal anatomy reveals no abnormal finding. Psoas and paraspinal muscle groups are symmetric. MR/MR lumbar spine wo con IMPRESSION: There is multilevel degenerative spondylosis of the lumbar spine with grade 1 anterolisthesis of L4 on L5 related to advanced facet degenerative changes at this level. Severe canal stenosis at L4-L5. Otherwise no substantial mass effect on the traversing or foraminal nerve roots elsewhere within the lumbar spine.
== END 2023-06-01 14:19 | disposition home or self-care (01) ==
LOC: HO.MRI 14:18
PROVIDERS: PCP Internal Medicine; Visit Provider Nurse Practitioner Family
DX: M54.16 Radiculopathy, lumbar region (principal)
CPT/HCPCS: 72148

== ENCOUNTER 2023-06-07 09:04 | Outpatient (AMB) | payer OTHER, MEDICARE, SELFPAY ==
--- NOTE | 2023-06-07 09:04 | A.OFFVIS_ITS ---
Intake Vital Signs 06/07/23 09:06 Height 5 ft 3 in Weight 168 lb BMI 29.8 BP 130/76 Blood Pressure Location Lt brachial Position Sitting Pulse 97 Pulse Source Pulse Oximeter Pulse Oximetry (%) 99 Oxygen Delivery Method Room Air Intake Visit Reasons: lumbar radiculopathy Allergies codeine Allergy (Unknown, Verified 06/07/23 09:09) Unknown Aspirin Allergy (Unknown, Uncoded 06/07/23 09:09) stomach upset Medication List - Last Reconciled 06/07/23 by Bella Calero LPN gabapentin 600 mg PO DAILY 14 days losartan 100 mg PO DAILY 90 days HPI lumbar radiculopathy HPI Details 77-year-old female who presents today al carlene with her for evaluation of lumbar radiculopathy. The patient has been experiencing pain in her right lower extremity and has difficulty walking. She states that the pain in the lower extremity started after she did some heavy lifting. She also reports having stiffness in her back. She reports tenderness and pain in her feet, especially on the right. She reports hip pain that radiates down to her leg. She has noticed muscle stiffness and weakness in her leg. She has noticed increased hypersensitivity over the past five years. She has been using hot compressions. She reports feeling pain when climbing down the stairs. She is using gabapentin 600 mg B.I.D. and Tylenol. She has tried Medrol Dosepa, which provided some temporary relief. She has had lumbar x-rays, which show mild OA. She reports that she is very sensitive to medication, and NSAIDs hurt her stomach and cause discomfort to her GI systems. She had completed an x-ray of the pelvis. She has not been in for physical therapy yet. [facility] Medical History (Updated 06/06/23 @ 15:00 by Natasha Moore MD) DDD (degenerative disc disease), lumbosacral Screening for osteoporosis Lumbar back pain with radiculopathy affecting right lower extremity Numbness and tingling of right lower extremity Lower extremity pain, right Social History Housing: House Alcohol intake: never Patient Tobacco Use Status: Never used Tobacco e-Cigarette/Vaping Use: Never Used service: No Current occupational status: unemployed Cognitive needs: No Hearing needs: No Vision needs: No Review of Systems Const All systems reviewed & are unremarkable except as noted in HPI and below Physical Exam Vital Signs: Last Vital Signs Pulse 97 06/07/23 09:06 BP 130/76 06/07/23 09:06 Pulse Ox 99 06/07/23 09:06 Oxygen Delivery Method Room Air 06/07/23 09:06 BMI result Body Mass Index 29.8 General: Appears afebrile. Alert and oriented. Mood and affect appropriate. Follows and participates in conversation appropriately. Respiratory effort is unlabored. Able to transition from sit to stand unassisted. Ambulates with bilaterally normal heel strike and toe off. Results Reviewed Results Reviewed: 06/01/2023: MRI lumbar spine w/o contrast FINDINGS: There is degenerative spinal scoliosis with a subtle leftward convex curvature of the lumbar spine. Grade 1 anterolisthesis of L4 on L5. Vertebral heights are preserved. No acute bone marrow signal changes. There is loss of intervertebral disc height and T2 signal intensity at L5-S1 related to disc degeneration. Disc desiccation visualized at multiple additional levels. The tip of the conus medullaris is located at L1-L2. No mass effect on the conus. Visualized distal cord signal intensity is normal. At L1-L2 the annular contour is normal. No canal stenosis. No mass effect on the traversing or foraminal nerve roots. At L2-L3 the annular contour is normal. No canal stenosis. No mass effect on the traversing or foraminal nerve roots. At L3-L4 there is a slightly bulging disc. No canal stenosis. No mass effect on the traversing or foraminal nerve roots. At L4-L5 there is a to disc bulge. Advanced bilateral facet degenerative change. Severe canal stenosis. No foraminal nerve root compression. The ligamentum flavum measures 6-8 mm under the lamina bilaterally. At L5-S1 there is an asymmetrically bulging disc to the right. Bilateral facet degenerative change. No canal stenosis. Subtle abutment of the right traversing S1 nerve roots. No foraminal nerve root compression. Limited visualization of the retroperitoneal anatomy reveals no abnormal finding. Psoas and paraspinal muscle groups are symmetric. IMPRESSION: There is multilevel degenerative spondylosis of the lumbar spine with grade 1 anterolisthesis of L4 on L5 related to advanced facet degenerative changes at this level. Severe canal stenosis at L4-L5. Otherwise no substantial mass effect on the traversing or foraminal nerve roots elsewhere within the lumbar spine. 05/25/23: XR lumbar spine FINDINGS: There is bony demineralization. At L4-L5, there is a 3 mm anterolisthesis. At L5-S1, there is marked disc space narrowing, with vacuum disc phenomenon. There is multi-level mild thoracolumbar spondylosis. There is facet arthropathy at L4-L5 and L5-S1. An L5 spondylolysis defect is questioned. There are aortoiliac atherosclerotic calcifications. IMPRESSION: 1. There is mild degenerative disc disease at L4-L5, and marked degenerative disc disease is seen at L5-S1. 2. There is multi-level mild thoracolumbar spondylosis. 3. There is facet arthropathy at L4-L5 and L5-S1. 4. An L5 spondylolysis defect is questioned. 05/25/23: XR Hip right FINDINGS: No fracture. Alignment is anatomic. Hip joint space is maintained. Soft tissues are unremarkable. IMPRESSION: Normal right hip. Assessment & Plan Assessment & Plan (1) Lumbar back pain with radiculopathy affecting right lower extremity: Code(s): M54.16 - Radiculopathy, lumbar region Plan Discuss trying a combination of physical therapy and injections for her pain. A referral was provided to physical therapy. The patient will receive a call to schedule an appointment. A script was also provided to the patient for physical therapy. I also recommended trying acupuncture therapy for her pain. I advised her to continue taking gabapentin 150 mg PO as she is taking currently. If her symptoms do not improve with physical therapy, we will consider a right L5-S1 TFESI. Scribed for Dr. Saldivar by Falguni Wang, medical insurance collector, on 06/07/2023. I, Dr. Saldivar, have personally reviewed and agree with the information entered by the scribe. Orders: Orders PT Evaluation and Treatment 06/07/23 M54.16 - Radiculopathy, lumbar region Coding Level of Care Code New Pt Level 4 (73320) Diagnoses Lumbar back pain with radiculopathy affecting right lower extremity M54.16
[2023-06-07 09:06] VITALS: BP 130/76; PULSE 97; O2SAT 99; BMI 29.8
== END 2023-06-07 09:37 | disposition home or self-care (01) ==
LOC: HO.PMC 09:04
PROVIDERS: PCP Internal Medicine; Visit Provider Internal Medicine
DX: M54.16 Radiculopathy, lumbar region (principal)
CPT/HCPCS: 99204

== ENCOUNTER → 2023-06-07 09:04 | Outpatient (BNVA) | payer OTHER, MEDICARE, SELFPAY | PROVIDERS: PCP Internal Medicine; Visit Provider Internal Medicine | DX: M54.16 Radiculopathy, lumbar region (principal) | CPT/HCPCS: 99202 ==

== ENCOUNTER 2023-06-15 09:42 | Outpatient (REF) | payer OTHER, MEDICARE, SELFPAY ==
--- NOTE | 2023-06-15 09:45 | EMG_ITS ---
Right tibial and peroneal motor studies were performed. Right superficial peroneal and sural sensory studies were performed. Tibial H-reflex was obtained, and needle examination was performed. Needle examination was somewhat limited because of limited effort. IMPRESSION: This study was suggesting right lower lumbar acute radiculopathy. MD KILO Gutierrez/MILDRED / [phone]
== END 2023-06-15 09:43 | disposition home or self-care (01) ==
LOC: HO.NEURO 09:42
PROVIDERS: PCP Internal Medicine; Visit Provider Nurse Practitioner Family
DX: M79.604 Pain in right leg (principal); M54.50 Low back pain, unspecified; R20.0 Anesthesia of skin; R20.2 Paresthesia of skin
CPT/HCPCS: 95886; 95909

== ENCOUNTER 2023-07-03 12:22 | Outpatient (RCR) | payer OTHER, MEDICARE, SELFPAY ==
--- NOTE | 2023-07-03 14:07 | MHC.PT.EP ---
[facility] [place] [facility] [place] [facility] [place] [facility] [address] Ally Trevizo [address] [phone] F: [phone] F: [phone] F: [phone] F: [phone] Physical Therapy Plan of Care Date of Evaluation: 07/03/23 Date of Surgery: Diagnosis: radiculopathy, lumbar region Assessment: 78 y/o female referred to PT with lumbar radiculopathy. Of note, she reports pain is gradually improving however she would like to learn a few exercises in case her pain returns. 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 Recommend PT to implement HEP, address impairments, and optimize functional mobility. She would like to come in 1-2 more visits only as she feels that she does not need much PT since it has improved (1x/every 2-3 weeks for 3 visits) Frequency and Duration: The patient will be seen 1x/ week for 6 weeks Short Term Goals: 3 weeks I with HEP Longterm Goals: 6 weeks Pt will be I with driving with pain < 2/10 Pt will be able to sit > 30 minutes with pain < 2/10 Treatment Plan: Modalities to reduce pain, spasms and effusion. Manual therapy to restore motion and function. Therapeutic exercise to improve strength and flexibility. Neuromuscular re-education for posture and balance. Therapeutic activities to return to functional activities of daily living. Electronically signed by: Shira Malin PT Please sign and return to therapist. Thank you for your referral.
--- NOTE | 2023-07-28 13:34 | MHC.PT.DC ---
[facility] [place] [facility] [place] [facility] [place] [facility] [address] Ally Trevizo [address] [phone] F: [phone] F: [phone] F: [phone] F: [phone] Physical Therapy Discharge Report Diagnosis: radiculopathy, lumbar region Date of Surgery: Date of Evaluation: 07/03/23 Date of Discharge: 07/28/23 Treatments to Date: 1 Cancellations to Date: 0 No Shows to Date: 0 Discharge Status: Patient Elected to Stop Discharge Summary: Pt called and self d/c following evaluation. She is feeling better and will be traveling. Electronically signed by: Shira Malin PT Please sign and return to therapist. Thank you for your referral.
== END 2023-07-28 13:35 | disposition home or self-care (01) ==
LOC: HO.PTCHIC 12:22
PROVIDERS: PCP Internal Medicine; Visit Provider Internal Medicine
DX: M54.16 Radiculopathy, lumbar region (principal)
CPT/HCPCS: 97110; 97162

== ENCOUNTER 2023-07-25 08:51 | Outpatient (AMB) | payer OTHER, MEDICARE, SELFPAY ==
--- NOTE | 2023-07-25 08:52 | MHC.PC.OV ---
Intake Visit Reasons: Sick Visit~ [phone] Allergies codeine Allergy (Unknown, Verified 07/25/23 08:53) Unknown Aspirin Allergy (Unknown, Uncoded 06/07/23 09:09) stomach upset Medication List - Last Reconciled 07/25/23 by Natasha Moore MD gabapentin 100 mg PO TID 30 days losartan 100 mg PO DAILY 90 days Tobacco use date assessed: 07/25/23 Fall risk assessment: No Falls in past year Last assessed Fall Risk: 07/25/23 Dental Screening Dental Screen Date: 07/25/23 Did you have a dental visit in the last 12 months?: Yes Did you have a dental problem in the last 6 months where you did not have access to dental care?: No Was dental information given to patient?: Patient has dentist HPI Sick Visit~ [phone] HPI Details Patient is 78-year-old female this is a telemedicine video conference Patient has been feeling sick for the past 7-10 days with cough and chest congestion Spitting out yellow phlegm She is requesting antibiotic, patient says that whenever she gets sick like that she usually does not recover until she take antibiotic Azithromycin sent patient was instructed to push fluids and rest. [facility] Medical History DDD (degenerative disc disease), lumbosacral Screening for osteoporosis Lumbar back pain with radiculopathy affecting right lower extremity Numbness and tingling of right lower extremity Lower extremity pain, right Social History Housing: House Alcohol intake: never Patient Tobacco Use Status: Never used Tobacco e-Cigarette/Vaping Use: Never Used service: No Current occupational status: unemployed Cognitive needs: No Hearing needs: No Vision needs: No Questionnaire Thrive Questionnaire Date Thrive assessed: 02/07/23 AUDIT C Alcohol Use Questionnaire (AUDIT-C) 1. How often do you have a drink containing alcohol?: Never 3. How often do you have six or more drinks on one occasion?: Never Total Score: 0 Score Reviewed/Action Taken: Yes CELIA-7 AMB Questionnaire CELIA-7 Date CELIA - 7 assessed: 02/07/23 Source: Developed by Drs. Deep Chamberlain, Shannon MckeonSom and colleagues, with an educational aleksandra from [employer]. Review of Systems Const Denies chills and Denies fever(s) ENT Denies epistaxis and Denies nasal discharge Card Denies chest pain Resp Denies hemoptysis GI Denies diarrhea and Denies nausea Skin/Breast Denies rash Neuro Reports no additional complaints Psych Reports no additional complaints Endo Reports no additional complaints Physical exam (Primary Care) Tobacco/Smoking Status: Tobacco use Status Tobacco use date assessed 07/25/23 07/25/23 08:54 Patient Tobacco Use Status Never used Tobacco 07/25/23 08:54 e-Cigarette/Vaping Use Never Used 07/25/23 08:54 Thrive Assessment: Date of Thrive Assessment Date Thrive assessed 02/07/23 07/25/23 08:54 Telehealth Telehealth Location of provider rendering services: practice address Location of patient: address on file Patient Identification confirmed using: Name, : Yes Telehealth method: video Patient verbally consented to treatment: Yes Patient verbally consented to billing insurance company: Yes Patient informed of any privacy concerns related to visit: Yes Minutes spent on Phone/Video with Pt.: 13 Assessment and Plan Assessment & Plan (1) Respiratory tract congestion with cough: Code(s): R05.8 - Other specified cough Plan Patient is 78-year-old female this is a telemedicine video conference Patient has been feeling sick for the past 7-10 days with cough and chest congestion Spitting out yellow phlegm She is requesting antibiotic, patient says that whenever she gets sick like that she usually does not recover until she take antibiotic Azithromycin sent patient was instructed to push fluids and rest. Medications: New azithromycin Take 2 tablets today then 1 daily 250 mg PO ONCE 6 tabs 1RF 5 days J06.9 - Acute upper respiratory infection, unspecified Coding Level of Care Code Tele Est Pt Level 3 (91952) Diagnoses Respiratory tract congestion with cough R05.8
== END 2023-07-25 11:24 | disposition home or self-care (01) ==
LOC: HO.HMGC 08:51
PROVIDERS: PCP Internal Medicine; Visit Provider Internal Medicine
DX: R05.8 Other specified cough (principal)
CPT/HCPCS: 99213

== ENCOUNTER 2023-09-06 12:43 | Outpatient (AMB) | payer OTHER, MEDICARE, SELFPAY ==
--- NOTE | 2023-09-06 12:44 | A.OFFPC_ITS ---
Vital Signs 09/06/23 12:46 Height 5 ft 3 in Weight 167 lb BMI 29.6 BP 130/80 Blood Pressure Location Rt brachial Position Sitting Pulse 102 H Pulse Source Pulse Oximeter Pulse Oximetry (%) 98 Oxygen Delivery Method Room Air Intake Visit Reasons: hip, leg, forehead issues Allergies codeine Allergy (Unknown, Verified 09/06/23 12:47) Unknown Aspirin Allergy (Unknown, Uncoded 09/06/23 12:47) stomach upset Medication List - Last Reconciled 09/06/23 by Natasha Moore MD acetaminophen (Tylenol) 325 mg PO QID PRN baclofen 10 mg PO BID ibuprofen (Advil Liqui-Gel) 200 mg PO Q6H PRN losartan 100 mg PO DAILY 90 days Tobacco use date assessed: 07/25/23 Dental Screening Dental Screen Date: 07/25/23 HPI hip, leg, forehead issues HPI Details Patient is 78 year old female has been having lumber pain radiating to legs seen pain managment and had MRI fe of this year which shows sever spinal stenosis L4-L5 she is doing well now, pain is controlled with tylenol, she is also taking 2 ibuprofen 200 mg Patient suffers from chronic acid reflux, I would recommend to cut down ibuprofen dose to only 1 a day GERD : Currently she is taking [id number] Prilosec only 1 a day, while she is on ibuprofen she should increase the dose to b.i.d. HTN : Bp is stable , she is taking Losartan 100 mg , tolerating medication no side effects over weight with BMI of 29.6 Lab order placed to be done fasting We will set up telephone visit in 1 week to go over labs Follow-up 3 months [facility] Medical History DDD (degenerative disc disease), lumbosacral Screening for osteoporosis Lumbar back pain with radiculopathy affecting right lower extremity Numbness and tingling of right lower extremity Lower extremity pain, right Social History Housing: House Alcohol intake: never Patient Tobacco Use Status: Never used Tobacco e-Cigarette/Vaping Use: Never Used service: No Current occupational status: unemployed Cognitive needs: No Hearing needs: No Vision needs: No Questionnaire Thrive Questionnaire Date Thrive assessed: 02/07/23 CELIA-7 AMB Questionnaire CELIA-7 Date CELIA - 7 assessed: 02/07/23 Source: Developed by Drs. Deep Chamberlain, Shannon Mckeon, Som Vásquez and colleagues, with an educational aleksandra from [employer]). Review of Systems Const Denies chills and Denies fever(s) ENT Denies epistaxis and Denies nasal discharge Card Denies chest pain Resp Denies chest congestion, Denies cough and Denies hemoptysis GI Denies diarrhea and Denies nausea Skin/Breast Denies rash Neuro Reports no additional complaints Psych Reports no additional complaints Endo Reports no additional complaints Physical exam (Primary Care) Vital Signs: Last Vital Signs Pulse 102 H 09/06/23 12:46 BP 130/80 09/06/23 12:46 Pulse Ox 98 09/06/23 12:46 Oxygen Delivery Method Room Air 09/06/23 12:46 BMI result Body Mass Index 29.6 Tobacco/Smoking Status: Tobacco use Status Tobacco use date assessed 07/25/23 09/06/23 12:45 Patient Tobacco Use Status Never used Tobacco 09/06/23 12:45 e-Cigarette/Vaping Use Never Used 09/06/23 12:45 Thrive Assessment: Date of Thrive Assessment Date Thrive assessed 02/07/23 09/06/23 12:45 Const General: cooperative, comfortable and no acute distress Orientation/consciousness: patient oriented x3 HENMT Head: Yes normocephalic Eyes General: appearance normal, both eyes and all related structures Neck Neck: Yes supple Resp Effort & Inspection: normal respiratory effort, no cough and no stridor Cardio Rhythm: regular rhythm Heart sounds: S1 normal heart sound present and S2 normal heart sound present Skin General skin exam: turgor normal Neuro Other: Straight leg negative both sides General: patient oriented x3, tone normal and moves all extremities Extrem Right lower extremity: no edema Left lower extremity: no edema Assessment and Plan Assessment & Plan (1) Lumbar back pain with radiculopathy affecting right lower extremity: Code(s): M54.16 - Radiculopathy, lumbar region (2) Spinal stenosis, lumbar: Code(s): M48.061 - Spinal stenosis, lumbar region without neurogenic claudication Qualifiers: Neurogenic claudication status: without neurogenic claudication Qualified Code(s): M48.061 - Spinal stenosis, lumbar region without neurogenic claudication (3) GERD (gastroesophageal reflux disease): Code(s): K21.9 - Gastro-esophageal reflux disease without esophagitis Qualifiers: Esophagitis presence: without esophagitis Qualified Code(s): K21.9 - Gastro-esophageal reflux disease without esophagitis (4) Hypertension, essential: Code(s): I10 - Essential (primary) hypertension Plan Patient is 78 year old female has been having lumber pain radiating to legs seen pain managment and had MRI fe of this year which shows sever spinal stenosis L4-L5 she is doing well now, pain is controlled with tylenol, she is also taking 2 ibuprofen 200 mg Patient suffers from chronic acid reflux, I would recommend to cut down ibuprofen dose to only 1 a day GERD : Currently she is taking [id number] Prilosec only 1 a day, while she is on ibuprofen she should increase the dose to b.i.d. HTN : Bp is stable , she is taking Losartan 100 mg , tolerating medication no side effects over weight with BMI of 29.6 Lab order placed to be done fasting We will set up telephone visit in 1 week to go over labs Follow-up 3 months Orders: Orders Lipid Panel Today I10 - Essential (primary) hypertension, K21.9 - Gastro- esophageal reflux disease without esophagitis, M48.061 - Spinal stenosis, lumbar region without neurogenic claudication, M54.16 - Radiculopathy, lumbar region Vitamin D 25-OH (D2 and D3) Today I10 - Essential (primary) hypertension, K21.9 - Gastro-esophageal reflux disease without esophagitis, M48.061 - Spinal stenosis, lumbar region without neurogenic claudication, M54.16 - Radiculopathy, lumbar region Complete Blood Count Auto Diff Today I10 - Essential (primary) hypertension, K21.9 - Gastro-esophageal reflux disease without esophagitis, M48.061 - Spinal stenosis, lumbar region without neurogenic claudication, M54.16 - Radiculopathy, lumbar region Comprehensive Ortley. Panel Fast Today I10 - Essential (primary) hypertension, K21.9 - Gastro-esophageal reflux disease without esophagitis, M48.061 - Spinal stenosis, lumbar region without neurogenic claudication, M54.16 - Radiculopathy, lumbar region Vitamin B12 Today I10 - Essential (primary) hypertension, K21.9 - Gastro- esophageal reflux disease without esophagitis, M48.061 - Spinal stenosis, lumbar region without neurogenic claudication, M54.16 - Radiculopathy, lumbar region UA CC w/rflx Micro + Cult Today I10 - Essential (primary) hypertension, K21.9 - Gastro-esophageal reflux disease without esophagitis, M48.061 - Spinal stenosis, lumbar region without neurogenic claudication, M54.16 - Radiculopathy, lumbar region TSH reflex Free T4 Today I10 - Essential (primary) hypertension, K21.9 - Gastro-esophageal reflux disease without esophagitis, M48.061 - Spinal stenosis, lumbar region without neurogenic claudication, M54.16 - Radiculopathy, lumbar region Coding Level of Care Code Est Pt Level 4 (60700) Complex EM visit Add On G2211 Diagnoses Lumbar back pain with radiculopathy affecting right lower extremity M54.16 Spinal stenosis of lumbar region without neurogenic claudication M48.061 Neurogenic claudication status: without neurogenic claudication Gastroesophageal reflux disease without esophagitis K21.9 Esophagitis presence: without esophagitis Hypertension, essential I10
[2023-09-06 12:46] VITALS: BP 130/80; PULSE 102; O2SAT 98; BMI 29.6
== END 2023-09-06 13:26 | disposition home or self-care (01) ==
PROVIDERS: PCP Internal Medicine; Visit Provider Internal Medicine
DX: M54.16 Radiculopathy, lumbar region (principal); M48.061 Spinal stenosis, lumbar region without neurogenic claudication; K21.9 Gastro-esophageal reflux disease without esophagitis; I10 Essential (primary) hypertension
CPT/HCPCS: 99214; G2211

== ENCOUNTER 2023-09-07 08:49 | Outpatient (REF) | payer OTHER, MEDICARE, SELFPAY ==
[2023-09-07 10:15] LABS: MANUAL DIFF FLAG NO
[2023-09-07 10:20] LABS: Appearance Urine Clear; Color Urine Yellow; Glucose Urine UA Negative (Negative); Leukocyte Esterase Urine Moderate (2+) (Negative); Nitrite Urine Positive (Negative); UMIC TRIGGER UACC YES; Urine Blood Negative (Negative); Urine Ketones Negative (Negative); Urine Protein Negative (Neg-Trace)
[2023-09-07 10:24] LABS: Basophils Absolute Auto 0.1 X10*3/uL (0.0-0.2); Eosinophils Absolute Auto 0.2 X10*3/uL (0.0-0.4); Eosinophils Percent Auto 2.7 % (0-4); Hematocrit 36.7 % (37.0-47.0); Hemoglobin 11.8 g/dl (12.0-16.0); Imm Gran Abs Auto 0.02 X10*3/uL (0.00-0.03); Imm Gran Pct Auto 0.3 % (0.0-0.4); Lymphocytes Absolute Auto 1.7 X10*3/uL (1.2-4.9); Lymphocytes Percent Auto 29.2 % (20-40); Mean Corpuscular HGB Conc 32.2 g/dl (31.0-35.0); Mean Corpuscular Hemoglobin 27.6 pg (27.0-33.0); Mean Corpuscular Volume 85.9 fL (80.0-98.0); Mean Platelet Volume 9.8 fL (9.4-12.3); Monocytes Absolute Auto 0.5 X10*3/uL (0.1-1.2); Monocytes Percent Auto 7.7 % (2-11); Neutrophils Absolute Auto 3.5 x10*3/uL (2.0-8.3); Neutrophils Percent Auto 59.1 % (45-73); Platelet Count 360 X10*3/uL (160-400); Red Blood Count 4.27 X10*6/uL (4.20-5.50); Red Cell Distribution Width 13.5 % (11.0-16.0)
[2023-09-07 10:26] LABS: Bacteria Urine 4+ (None Seen); Hyaline Casts Urine 0-2 /LPF (0-2); RBC Urine 0-2 /HPF (0-2); Squamous Epithelial Cell Urine 0-2 /HPF (0-2); UACC Culture Trigger YES; WBC Urine >50 /HPF (0-5)
[2023-09-07 10:44] LABS: Alanine Aminotransferase 18 U/L (0-31); Albumin Level 4.2 g/dL (3.5-5.0); Alkaline Phosphatase 97 U/L (39-117); Anion Gap 12 (12-20); Aspartate Amino Transferase 21 U/L (5-31); Bilirubin Total 0.3 mg/dL (0.0-1.0); Blood Urea Nitrogen 13 mg/dL (9-16); Calcium 9.7 mg/dL (8.4-10.2); Carbon Dioxide 25 mmol/L (22-29); Chloride 105 mmol/L (96-108); Cholesterol 189 mg/dL (<200); Estimated Glomerular Filt Rate > 60; Glucose Fasting 100 mg/dL (60-99); HDL Cholesterol 76 mg/dL (>40); LDL Cholesterol Calculated 103 mg/dL (<100); Potassium 4.4 mmol/L (3.3-5.1); Sodium 138 mmol/L (135-145); Total Protein 7.4 g/dL (6.5-8.0); Triglycerides 51 mg/dL (<150)
[2023-09-07 11:03] LABS: TSH reflex Free T4 0.95 uIU/mL (0.32-4.0)
[2023-09-07 11:15] LABS: Vitamin B12 852 pg/mL (200-900)
[2023-09-11 15:49] LABS: Vitamin D 25-OH, D2 <4 ng/mL; Vitamin D 25-OH, D3 38 ng/mL; Vitamin D 25-OH, Total 38 ng/mL (30-100)
== END 2023-09-07 08:50 | disposition home or self-care (01) ==
LOC: HO.HMGCLDS 08:49
PROVIDERS: PCP Internal Medicine; Visit Provider Internal Medicine
DX: M54.16 Radiculopathy, lumbar region (principal); M48.061 Spinal stenosis, lumbar region without neurogenic claudication; K21.9 Gastro-esophageal reflux disease without esophagitis; I10 Essential (primary) hypertension; R82.71 Bacteriuria
CPT/HCPCS: 36415; 80053; 80061; 81001; 82306; 82607; 84443; 85025; 87086; 87088; 87186

== ENCOUNTER 2023-09-14 08:42 | Outpatient (AMB) | payer OTHER, MEDICARE, SELFPAY ==
--- NOTE | 2023-09-14 09:23 | A.OFFPC_ITS ---
Intake Visit Reasons: Follow Up~ [phone] Allergies codeine Allergy (Unknown, Verified 09/14/23 09:24) Unknown Aspirin Allergy (Unknown, Uncoded 09/06/23 12:47) stomach upset Medication List - Last Reconciled 09/14/23 by Natasha Moore MD acetaminophen (Tylenol) 325 mg PO QID PRN baclofen 10 mg PO BID ibuprofen (Advil Liqui-Gel) 200 mg PO Q6H PRN losartan 100 mg PO DAILY 90 days nitrofurantoin monohyd/m-cryst 100 mg (Macrobid) 100 mg PO Q12H 3 days Tobacco use date assessed: 09/14/23 Fall risk assessment: No Falls in past year Last assessed Fall Risk: 09/14/23 Dental Screening Dental Screen Date: 09/14/23 Did you have a dental visit in the last 12 months?: No Did you have a dental problem in the last 6 months where you did not have access to dental care?: No Was dental information given to patient?: Patient has dentist HPI Follow Up~ [phone] HPI Details This is a Telemed Video f.u Patient was complaining of feeling tired last visit I stopped her Beclofen, labs were ordered her urine showed infection, she was treated with Abx she is feeling much better labs were reviewed with patient as well i have place order for repeat UA to make sure it has resolved PFSH Medical History DDD (degenerative disc disease), lumbosacral Screening for osteoporosis Lumbar back pain with radiculopathy affecting right lower extremity Numbness and tingling of right lower extremity Lower extremity pain, right Social History Housing: House Alcohol intake: never Patient Tobacco Use Status: Never used Tobacco e-Cigarette/Vaping Use: Never Used service: No Current occupational status: unemployed Cognitive needs: No Hearing needs: No Vision needs: No Questionnaire Thrive Questionnaire Date Thrive assessed: 02/07/23 AUDIT C Alcohol Use Questionnaire (AUDIT-C) 1. How often do you have a drink containing alcohol?: Never 3. How often do you have six or more drinks on one occasion?: Never Total Score: 0 Score Reviewed/Action Taken: Yes CELIA-7 AMB Questionnaire CELIA-7 Date CELIA - 7 assessed: 02/07/23 Source: Developed by Drs. Deep Chamberlain, Shannon Mckeon, Som Vásquez and colleagues, with an educational aleksandra from [employer]. Review of Systems Const Denies chills and Denies fever(s) ENT Denies epistaxis and Denies nasal discharge Card Denies chest pain Resp Denies chest congestion, Denies cough and Denies hemoptysis GI Denies diarrhea and Denies nausea Skin/Breast Denies rash Neuro Reports no additional complaints Psych Reports no additional complaints Endo Reports no additional complaints Physical exam (Primary Care) Tobacco/Smoking Status: Tobacco use Status Tobacco use date assessed 07/25/23 09/06/23 12:45 Patient Tobacco Use Status Never used Tobacco 09/06/23 12:45 e-Cigarette/Vaping Use Never Used 09/06/23 12:45 Thrive Assessment: Date of Thrive Assessment Date Thrive assessed 02/07/23 09/06/23 12:45 Telehealth Telehealth Telehealth Platform: [employer] Location of provider rendering services: practice address Location of patient: address on file Patient Identification confirmed using: Name, : Yes Telehealth method: video Patient verbally consented to treatment: Yes Patient verbally consented to billing insurance company: Yes Patient informed of any privacy concerns related to visit: Yes Minutes spent on Phone/Video with Pt.: 14 Assessment and Plan Assessment & Plan (1) Bladder infection: Code(s): N30.90 - Cystitis, unspecified without hematuria Plan This is a Telemed Video f.u Patient was complaining of feeling tired last visit I stopped her Beclofen, labs were ordered her urine showed infection, she was treated with Abx she is feeling much better labs were reviewed with patient as well i have place order for repeat UA to make sure it has resolved Orders: Orders UA CC w/rflx Micro + Cult Today N30.90 - Cystitis, unspecified without hematuria Coding Level of Care Code Tele Est Pt Level 3 (48049) Diagnoses Bladder infection N30.90
== END 2023-09-14 13:42 | disposition home or self-care (01) ==
LOC: HO.HMGC 08:42
PROVIDERS: PCP Internal Medicine; Visit Provider Internal Medicine
DX: N30.90 Cystitis, unspecified without hematuria (principal)
CPT/HCPCS: 99213

== ENCOUNTER 2023-10-12 09:11 | Outpatient (REF) | payer OTHER, MEDICARE, SELFPAY ==
[2023-10-12 10:27] LABS: Appearance Urine Clear; Color Urine Yellow; Glucose Urine UA Negative (Negative); Leukocyte Esterase Urine Moderate (2+) (Negative); Nitrite Urine Positive (Negative); PH 6.5 (5.0-9.0); Specific Gravity - Urine 1.015 (1.005-1.025); UMIC TRIGGER UACC YES; Urine Blood Negative (Negative); Urine Ketones Negative (Negative); Urine Protein Negative (Neg-Trace)
[2023-10-12 10:45] LABS: Bacteria Urine None Seen (None Seen); Hyaline Casts Urine 0-2 /LPF (0-2); RBC Urine 0-2 /HPF (0-2); Squamous Epithelial Cell Urine 0-2 /HPF (0-2); UACC Culture Trigger YES
== END 2023-10-12 09:12 | disposition home or self-care (01) ==
LOC: HO.HMGCLDS 09:11
PROVIDERS: PCP Internal Medicine; Visit Provider Internal Medicine
DX: N30.90 Cystitis, unspecified without hematuria (principal); R82.79 Other abnormal findings on microbiological examination of urine
CPT/HCPCS: 81001; 87086; 87088; 87186

== ENCOUNTER 2023-12-19 10:06 | Outpatient (REF) | payer OTHER, MEDICARE, SELFPAY | END 2023-12-19 10:07 | disposition home or self-care (01) | LOC: HO.LNP 10:06 | PROVIDERS: Visit Provider Internal Medicine | DX: N30.90 Cystitis, unspecified without hematuria (principal) | CPT/HCPCS: 87086; 87088; 87186 ==

== ENCOUNTER 2023-12-19 12:48 | Outpatient (AMB) | payer OTHER, MEDICARE, SELFPAY ==
[2023-12-19 12:53] VITALS: BP 126/68; PULSE 80; O2SAT 97; BMI 29.9
--- NOTE | 2023-12-19 12:53 | A.OFFPC_ITS ---
Vital Signs 12/19/23 12:53 Height 5 ft 3 in Weight 169 lb BMI 29.9 BP 126/68 Blood Pressure Location Rt brachial Position Sitting Pulse 80 Pulse Source Pulse Oximeter Pulse Oximetry (%) 97 Oxygen Delivery Method Room Air Intake Visit Reasons: Follow up Allergies codeine Allergy (Unknown, Verified 12/19/23 12:55) Unknown Aspirin Allergy (Unknown, Uncoded 12/19/23 12:55) stomach upset Medication List - Last Reconciled 12/19/23 by Natasha Moore MD acetaminophen (Tylenol) 325 mg PO QID PRN ibuprofen (Advil Liqui-Gel) 200 mg PO Q6H PRN losartan 100 mg PO DAILY 90 days Tobacco use date assessed: 12/19/23 Dental Screening Dental Screen Date: 09/14/23 HPI Follow up HPI Details Patient is 78 year old female Left sided Bursitis , has apt with Pain management for evaluation also want UA, feels she might have UTI UA shows 3+ leuk esterase, and 1+ blood Urine sent for culture I am treating her with nitrofurantoin b.i.d. for 10 days Lower back pain: Stable, MRI fe of this year which shows sever spinal stenosis L4-L5 Labs were done August of this year, new set of lab order placed Patient have impaired fasting sugar as well we will check hemoglobin A1c GERD : Currently she is taking [id number] Prilosec HTN : Bp is stable , she is taking Losartan 100 mg , tolerating medication no side effects over weight with BMI of 29.9 Follow-up 4 months PFSH Medical History DDD (degenerative disc disease), lumbosacral Screening for osteoporosis Lumbar back pain with radiculopathy affecting right lower extremity Numbness and tingling of right lower extremity Lower extremity pain, right Social History Housing: House Alcohol intake: never Patient Tobacco Use Status: Never used Tobacco e-Cigarette/Vaping Use: Never Used service: No Current occupational status: unemployed Cognitive needs: No Hearing needs: No Vision needs: No Questionnaire Thrive Questionnaire Date Thrive assessed: 02/07/23 CELIA-7 AMB Questionnaire CELIA-7 Date CELIA - 7 assessed: 02/07/23 Source: Developed by Drs. Deep Chamberlain, Shannon Mckeon, Som Vásquez and colleagues, with an educational aleksandra from [employer]. Review of Systems Const Denies chills and Denies fever(s) ENT Denies epistaxis and Denies nasal discharge Card Denies chest pain Resp Denies chest congestion, Denies cough and Denies hemoptysis GI Denies diarrhea and Denies nausea Skin/Breast Denies rash Neuro Reports no additional complaints Psych Reports no additional complaints Endo Reports no additional complaints Physical exam (Primary Care) Vital Signs: Last Vital Signs Pulse 80 12/19/23 12:53 BP 126/68 12/19/23 12:53 Pulse Ox 97 12/19/23 12:53 Oxygen Delivery Method Room Air 12/19/23 12:53 BMI result Body Mass Index 29.9 Tobacco/Smoking Status: Tobacco use Status Tobacco use date assessed 12/19/23 12/19/23 12:58 Patient Tobacco Use Status Never used Tobacco 12/19/23 12:58 e-Cigarette/Vaping Use Never Used 12/19/23 12:58 Thrive Assessment: Date of Thrive Assessment Date Thrive assessed 02/07/23 12/19/23 12:58 Const General: cooperative, comfortable and no acute distress Orientation/consciousness: patient oriented x3 HENMT Head: Yes normocephalic Eyes General: appearance normal, both eyes and all related structures Neck Neck: Yes supple Resp Effort & Inspection: normal respiratory effort, no cough and no stridor Cardio Rhythm: regular rhythm Heart sounds: S1 normal heart sound present and S2 normal heart sound present Skin General skin exam: turgor normal Neuro General: patient oriented x3, tone normal and moves all extremities Extrem Right lower extremity: no edema Left lower extremity: no edema Results AMB Urinalysis, Automated UA Leukoctes 500 Jonathan/uL Last Edit by KAMERON Morales on 12/19/23 14: 37 UA Nitrite Negative Last Edit by KAMERON Morales on 12/19/23 14:37 UA Urobilinogen 0.2 mg/dL Last Edit by KAMERON Morales on 12/19/23 14:37 UA Protein 0 mg/dL Last Edit by KAMERON Morales on 12/19/23 14:37 UA pH 6.0 Last Edit by Betty Flores [facility] on 12/19/23 14:37 UA Blood 10 Sd/uL Last Edit by Betty Flores [facility] on 12/19/23 14:37 UA Specific [place] 1.005 Last Edit by Betty Flores, [facility] on 12/19/23 14:37 UA Ketone Negative Last Edit by NickyAshley Flores, [facility] on 12/19/23 14:37 UA Bilirubin 0 mg/dL Last Edit by NickyAshley Flores [facility] on 12/19/23 14:37 UA Glucose 0 mg/dL Last Edit by Betty Flores [facility] on 12/19/23 14:37 Results Reviewed Results Reviewed: Laboratory Last Values Urine pH (Auto) 6.0 12/19/23 14:36 Specific [place] (Auto) 1.005 12/19/23 14:36 Urine Protein (Auto) 0 mg/dL 12/19/23 14:36 Glucose (UA)(Auto) 0 mg/dL 12/19/23 14:36 Urine Ketones (Auto) Negative 12/19/23 14:36 Urine Blood (Auto) 10 Sd/uL 12/19/23 14:36 Urine Nitrite (Auto) Negative 12/19/23 14:36 Urine Bilirubin (Auto) 0 mg/dL 12/19/23 14:36 Urine Urobilinogen (Auto) 0.2 mg/dL 12/19/23 14:36 Leukocyte Esterase (Auto) 500 Jonathan/uL 12/19/23 14:36 Assessment and Plan Assessment & Plan (1) Hypertension, essential: Code(s): I10 - Essential (primary) hypertension (2) Bladder infection: Code(s): N30.90 - Cystitis, unspecified without hematuria (3) Chronic GERD: Code(s): K21.9 - Gastro-esophageal reflux disease without esophagitis (4) Low hemoglobin: Code(s): D64.9 - Anemia, unspecified (5) GERD (gastroesophageal reflux disease): Code(s): K21.9 - Gastro-esophageal reflux disease without esophagitis Qualifiers: Esophagitis presence: without esophagitis Qualified Code(s): K21.9 - Gastro-esophageal reflux disease without esophagitis (6) DDD (degenerative disc disease), lumbosacral: Code(s): M51.37 - Other intervertebral disc degeneration, lumbosacral region (7) Spinal stenosis, lumbar: Code(s): M48.061 - Spinal stenosis, lumbar region without neurogenic claudication Qualifiers: Neurogenic claudication status: without neurogenic claudication Qualified Code(s): M48.061 - Spinal stenosis, lumbar region without neurogenic claudication (8) Osteoarthritis involving multiple joints on both sides of body: Code(s): M15.9 - Polyosteoarthritis, unspecified Plan Patient is 78 year old female Left sided Bursitis , has apt with Pain management for evaluation also want UA, feels she might have UTI UA shows 3+ leuk esterase, and 1+ blood Urine sent for culture I am treating her with nitrofurantoin b.i.d. for 10 days Lower back pain: Stable, MRI may of this year which shows sever spinal stenosis L4-L5 Labs were done August of this year, new set of lab order placed Patient have impaired fasting sugar as well we will check hemoglobin A1c GERD : Currently she is taking [id number] Prilosec HTN : Bp is stable , she is taking Losartan 100 mg , tolerating medication no side effects over weight with BMI of 29.9 Follow-up 4 months Orders: Orders Comprehensive Met. Panel Today D64.9 - Anemia, unspecified, I10 - Essential (primary) hypertension, K21.9 - Gastro-esophageal reflux disease without esophagitis, M48.061 - Spinal stenosis, lumbar region without neurogenic c laudication, M51.37 - Other intervertebral disc degeneration, lumbosacral region Hemoglobin A1c Today D64.9 - Anemia, unspecified, I10 - Essential (primary) hypertension, K21.9 - Gastro-esophageal reflux disease without esophagitis, M48.061 - Spinal stenosis, lumbar region without neurogenic claudication, M51.37 - Other intervertebral disc degeneration, lumbosacral region Ferritin Today D64.9 - Anemia, unspecified, M15.9 - Polyosteoarthritis, unspecified Vitamin D 25-OH (D2 and D3) Today D64.9 - Anemia, unspecified, M15.9 - Polyosteoarthritis, unspecified Vitamin B12 Today D64.9 - Anemia, unspecified, M15.9 - Polyosteoarthritis, unspecified Urine Culture Today N30.90 - Cystitis, unspecified without hematuria Hematocrit Today D64.9 - Anemia, unspecified, I10 - Essential (primary) hypertension, K21.9 - Gastro-esophageal reflux disease without esophagitis, M48.061 - Spinal stenosis, lumbar region without neurogenic claudication, M51.37 - Other intervertebral disc degeneration, lumbosacral region Hemoglobin Today D64.9 - Anemia, unspecified, I10 - Essential (primary) hypertension, K21.9 - Gastro-esophageal reflux disease without esophagitis, M48.061 - Spinal stenosis, lumbar region without neurogenic claudication, M51.37 - Other intervertebral disc degeneration, lumbosacral region Folate Today D64.9 - Anemia, unspecified, M15.9 - Polyosteoarthritis, unspecified AMB Urinalysis Automated Today Z13.9 - Encounter for screening, unspecified Medications: Refilled nitrofurantoin monohyd/m-cryst 100 mg (Macrobid) must administer with a meal/food 100 mg PO Q12H 10 days 20 caps 0RF Coding Level of Care Code Est Pt Level 4 (98579) Complex EM visit Add On G2211 Diagnoses Hypertension, essential I10 Bladder infection N30.90 Chronic GERD K21.9 Low hemoglobin D64.9 Gastroesophageal reflux disease without esophagitis K21.9 Esophagitis presence: without esophagitis DDD (degenerative disc disease), lumbosacral M51.37 Spinal stenosis of lumbar region without neurogenic claudication M48.061 Neurogenic claudication status: without neurogenic claudication Osteoarthritis involving multiple joints on both sides of body M15.9
== END 2023-12-19 14:09 | disposition home or self-care (01) ==
PROVIDERS: PCP Internal Medicine; Visit Provider Internal Medicine
DX: I10 Essential (primary) hypertension (principal); N30.90 Cystitis, unspecified without hematuria; K21.9 Gastro-esophageal reflux disease without esophagitis; D64.9 Anemia, unspecified; M51.37 Other intervertebral disc degeneration, lumbosacral region; M48.061 Spinal stenosis, lumbar region without neurogenic claudication; M15.9 Polyosteoarthritis, unspecified; Z13.9 Encounter for screening, unspecified
CPT/HCPCS: 81003; 99214

== ENCOUNTER 2024-01-22 11:00 | Outpatient (AMB) | payer OTHER, MEDICARE, SELFPAY ==
--- NOTE | 2024-01-22 11:01 | A.OFFVIS_ITS ---
Vital Signs 01/22/24 11:03 Height 5 ft 3 in Weight 169 lb BMI 29.9 BP 130/72 Blood Pressure Location Lt brachial Position Sitting Respiration 16 Pulse 110 H Pulse Source Pulse Oximeter Pulse Oximetry (%) 98 Oxygen Delivery Method Room Air Intake Visit Reasons: Follow Up Allergies codeine Allergy (Unknown, Verified 01/22/24 11:05) Unknown Aspirin Allergy (Unknown, Uncoded 01/22/24 11:05) stomach upset Medication List - Last Reconciled 01/22/24 by Bella Calero LPN acetaminophen (Tylenol) 325 mg PO QID PRN ibuprofen (Advil Liqui-Gel) 200 mg PO Q6H PRN losartan 100 mg PO DAILY 90 days HPI HPI Follow Up: Details: 78-year-old female who presents today to the office for a follow up. She describes her main symptoms as persistent aching in her lower legs and pain in her left hip on the lateral aspect, and occasional lower extremity cramping and spasms. She has been experiencing pain in her right lower extremity and has difficulty walking. She states that the pain in the lower extremity started after she did some heavy lifting. She also reports having stiffness in her back. She reports tenderness and pain in her feet, especially on the right. She reports hip pain that radiates down to her leg. She has noticed muscle stiffness and weakness in her leg. She is using gabapentin 600 mg B.I.D. and Tylenol. She has tried Medrol Dosepak, which provided some temporary relief. [facility] Medical History DDD (degenerative disc disease), lumbosacral Screening for osteoporosis Lumbar back pain with radiculopathy affecting right lower extremity Numbness and tingling of right lower extremity Lower extremity pain, right Social History Housing: House Alcohol intake: never Patient Tobacco Use Status: Never used Tobacco e-Cigarette/Vaping Use: Never Used service: No Current occupational status: unemployed Cognitive needs: No Hearing needs: No Vision needs: No Review of Systems Const All systems reviewed & are unremarkable except as noted in HPI and below Physical Exam Vital Signs: Last Vital Signs Pulse 110 H 01/22/24 11:03 Resp 16 01/22/24 11:03 BP 130/72 01/22/24 11:03 Pulse Ox 98 01/22/24 11:03 Oxygen Delivery Method Room Air 01/22/24 11:03 BMI result Body Mass Index 29.9 General: Appears afebrile. Alert and oriented. Mood and affect appropriate. Follows and participates in conversation appropriately. Respiratory effort is unlabored. Able to transition from sit to stand unassisted. Ambulates with bilaterally normal heel strike and toe off. Results Reviewed Results Reviewed: No imaging is available for review. Assessment & Plan Assessment & Plan (1) Osteoarthritis involving multiple joints on both sides of body: Code(s): M15.9 - Polyosteoarthritis, unspecified Category: Medical (2) Lumbar back pain with radiculopathy affecting right lower extremity: Code(s): M54.16 - Radiculopathy, lumbar region Category: Medical Plan I had an extensive discussion with the patient about a preventative regimen for her multifactorial pain issues. For her leg pain secondary to venous insufficiency, I recommended trying low compression stockings/socks since she is unable to tolerate a higher level of compression. I discussed that she can use them as needed when she is going for long walks or traveling for extended periods of time. I also advised her to use Epsom salt baths to soak her legs to help with venous flow and muscular cramping. She is already using a magnesium supplement, and I agree with continuing that. For her neuropathic symptoms secondary to sciatica, we discussed continuing acupuncture. I provided her with contact information for Lonnie Parekh in [place] for her occasional symptoms. I recommended that she use acetaminophen instead of ibuprofen to minimize adverse effects. I do not think she is a candidate for any interventional therapy at this point. If her left hip bursitis symptoms continue to be bothersome or become severe, we can consider an ultrasound-guided left GTB injection in the office. Scribed for Dr. Saldivar by David Joseph, medical translator, on 01/22/2024. I, Dr. Saldivar, have personally reviewed and agree with the information entered by the scribe. Coding Level of Care Code Est Pt Level 4 (43483) Diagnoses Osteoarthritis involving multiple joints on both sides of body M15.9 Lumbar back pain with radiculopathy affecting right lower extremity M54.16
[2024-01-22 11:03] VITALS: BP 130/72; PULSE 110; RESP 16; O2SAT 98; BMI 29.9
== END 2024-01-22 11:51 | disposition home or self-care (01) ==
LOC: HO.PMC 11:00
PROVIDERS: PCP Internal Medicine; Visit Provider Internal Medicine
DX: M15.9 Polyosteoarthritis, unspecified (principal); M54.16 Radiculopathy, lumbar region
CPT/HCPCS: 99214

== ENCOUNTER → 2024-01-22 11:00 | Outpatient (BNVA) | payer OTHER, MEDICARE, SELFPAY | PROVIDERS: PCP Internal Medicine; Visit Provider Internal Medicine ==

== ENCOUNTER 2024-02-28 10:54 | Outpatient (REF) | payer OTHER, MEDICARE, SELFPAY ==
[2024-02-28 13:25] LABS: Hematocrit 33.8 % (37.0-47.0); Hemoglobin 11.2 g/dl (12.0-16.0)
[2024-02-28 13:30] LABS: Appearance Urine Clear; Color Urine Yellow; Glucose Urine UA Negative (Negative); Leukocyte Esterase Urine Moderate (2+) (Negative); Nitrite Urine Negative (Negative); PH 6.5 (5.0-9.0); Specific Gravity - Urine 1.015 (1.005-1.025); UMIC TRIGGER UACC YES; Urine Blood Negative (Negative); Urine Ketones Negative (Negative); Urine Protein Negative (Neg-Trace)
[2024-02-28 13:34] LABS: Bacteria Urine 4+ (None Seen); Hyaline Casts Urine 0-2 /LPF (0-2); RBC Urine 0-2 /HPF (0-2); Squamous Epithelial Cell Urine 0-2 /HPF (0-2); UACC Culture Trigger YES
[2024-02-28 13:50] LABS: Estimated Average Glucose 120 mg/dL; Hemoglobin A1C 115.4203 umol/L; Hemoglobin A1c % 5.8 % (<6.0); Total Hemoglobin (HGBA1C) 2856.5518 umol/L
[2024-02-28 13:55] LABS: Alanine Aminotransferase 23 U/L (0-31); Albumin Level 4.3 g/dL (3.5-5.0); Alkaline Phosphatase 116 U/L (39-117); Anion Gap 12 (12-20); Aspartate Amino Transferase 26 U/L (5-31); Bilirubin Total 0.2 mg/dL (0.0-1.0); Blood Urea Nitrogen 22 mg/dL (9-16); Calcium 9.6 mg/dL (8.4-10.2); Carbon Dioxide 24 mmol/L (22-29); Chloride 106 mmol/L (96-108); Estimated Glomerular Filt Rate > 60; Glucose Random 104 mg/dL (60-115); Potassium 4.6 mmol/L (3.3-5.1); Sodium 137 mmol/L (135-145); Total Protein 7.6 g/dL (6.5-8.0)
[2024-02-28 13:59] LABS: Ferritin 33 ng/mL (10-250)
[2024-02-28 14:30] LABS: Folate 19.7 ng/mL (> or = 4.0); Vitamin B12 841 pg/mL (200-900)
[2024-03-03 17:18] LABS: Vitamin D 25-OH, D2 <4 ng/mL; Vitamin D 25-OH, D3 36 ng/mL; Vitamin D 25-OH, Total 36 ng/mL (30-100)
== END 2024-02-28 10:55 | disposition home or self-care (01) ==
LOC: HO.HMGCLDS 10:54
PROVIDERS: PCP Internal Medicine; Visit Provider Internal Medicine
DX: I10 Essential (primary) hypertension (principal); K21.9 Gastro-esophageal reflux disease without esophagitis; D64.9 Anemia, unspecified; M51.370 Other intervertebral disc degeneration, lumbosacral region with discogenic back pain only; M48.061 Spinal stenosis, lumbar region without neurogenic claudication; M15.9 Polyosteoarthritis, unspecified
CPT/HCPCS: 36415; 80053; 81001; 82306; 82607; 82728; 82746; 83036; 85014; 85018; 87086; 87088; 87186; 96127

== ENCOUNTER 2024-02-28 10:54 | Outpatient (AMB) | payer OTHER, MEDICARE, SELFPAY ==
--- NOTE | 2024-02-28 10:56 | AM.OFFVISMDC ---
Intake Vital Signs 02/28/24 11:06 Height 5 ft 3 in Weight 162 lb 4 oz BMI 28.7 BP 126/66 Blood Pressure Location Rt brachial Position Sitting Pulse 86 Pulse Source Pulse Oximeter Pulse Oximetry (%) 96 Oxygen Delivery Method Room Air Intake Visit Reasons: Medicare Annual Wellness~ Allergies codeine Allergy (Unknown, Verified 02/28/24 11:09) Unknown Aspirin Allergy (Unknown, Uncoded 01/22/24 11:05) stomach upset Medication List - Last Reconciled 02/28/24 by Natasha Moore MD acetaminophen (Tylenol) 325 mg PO QID PRN ibuprofen (Advil Liqui-Gel) 200 mg PO Q6H PRN losartan 100 mg PO DAILY 90 days Do you need a note to return to daycare/school/sports/work: No HPI Medicare Annual Wellness~ HPI Details Patient is 78 year old female Patient forgot to do labs, she will do them today Patient have impaired fasting sugar diet-controlled is recommended GERD : Currently she is taking [id number] Prilosec HTN : Bp is stable , she is taking Losartan 100 mg , tolerating medication no side effects over weight with BMI of 29.9 Follow-up 6 months labs are needed before visit HPI Comments History of Present Illness Details AWV Medical/social history reviewed Past medical history reviewed Ione of care / care team list updated Surgical/ hospitalization history reviewed Current medications including OTC and supplements reviewed Family history reviewed Tobacco controlled form updated Alcohol use form updated Illicit drug use in social history reviewed Current diagnosis of depression ?screening updated Appropriate PHQ 2/PHQ-9 completed . Vital signs reviewed Alcohol tobacco drug use reviewed and discussed . MMSE completed . ? Fall risk: ?Assessed Fall history: ?None Have you had any falls with injury in the past year?? No Have you had 2 or more falls in the past year?? No Fall risk assessment completed Home safety discussed with the patient Functional ability assessed and discussed and documented Activities of daily living reviewed and appropriate actions taken . HRA filled out by the patient reviewed by provider and scanned . Appropriate written screening schedule established . Any health advise needed provided . Advance care planning , last forms in the chart, healthcare proxy paperwork handed to patient Examination IPPE/AWE: Balance : Intact Romberg failed Tandem walk failed walk-in turn failed rise from sit to stand intact . ?Hearing ?whisper test failed , . Medication list reviewed, patient is stable on medications All other providers patient is seeing discussed and noted . [facility] Medical History DDD (degenerative disc disease), lumbosacral Screening for osteoporosis Lumbar back pain with radiculopathy affecting right lower extremity Numbness and tingling of right lower extremity Lower extremity pain, right Social History Housing: House Alcohol intake: never Patient Tobacco Use Status: Never used Tobacco e-Cigarette/Vaping Use: Never Used service: No Current occupational status: unemployed Cognitive needs: No Hearing needs: No Vision needs: No Questionnaire Medicare Wellness Checkup [age] What gender do you identify with?: female During the past 4 weeks, how much have you been bothered by emotional problems such as feeling anxious, depressed, irritable, sad or downhearted, and blue?: not at all During the past 4 weeks, has your physical & emotional health limited your social activities with family, friends, neighbors, or groups?: slightly During the past 4 weeks, how much bodily pain have you generally had?: very mild pain During the past 4 weeks, was someone available to help you if you needed & wanted help?: no, not at all During the past 4 weeks, what was the hardest physical activity you could do for at least 2 minutes?: heavy Can you get to places out of walking distance without help? (For eg., can you travel alone on buses, taxis or drive your car?): Yes Can you go shopping for groceries or clothes without someone's help?: Yes Can you prepare your own meals?: Yes Can you do your housework without help?: Yes Because of any health problems, do you need the help of another person with your personal care needs such as eating, bathing, dressing or getting around the house?: No Can you handle your own money without help?: Yes During the past 4 weeks, how would you rate your health in general?: good During the past 4 weeks how have things been going for you?: pretty well Are you having difficulties driving your car?: not applicable, I don't use a car During past 4 weeks, have you been bothered by the following: never: Falling or dizzy when standing up, Sexual problems?, Trouble eating well?, Teeth or denture problems?, Problems using the telephone? and Tiredness or fatigue? Have you fallen 2 or more times in the past year?: No Are you afraid of falling?: No Are you a smoker?: no During the past 4 weeks, how many drinks of wine, beer, or other alcoholic beverages did you have?: no alcohol at all Do you exercise for about 20 minutes 3 or more times a week?: no, I usually do not exercise this much Have you been given information to help with the following?: no: Hazards in your house that might hurt you? and no: Keeping track of your medications? How often do you have trouble taking medicines the way you have been told to take them?: I always take medicine as prescribed How confident are you that you can control & manage most of your health problems?: very confident What is your race?: Mini Mental State Exam (MMSE) Orientation What is the (year) (season) (date) (day) (month)?: year, season, date, day and month Where are we (state) (county) (town or city) (hospital) (floor)?: state, county, town or city, hospital/clinic and floor Score Score: 10 Activity of Daily Living Bathing - sponge bath, tub bath or shower: receives no assistance (gets in/out by self, if usual bathing means Dressing - getting clothes from closets & drawers, including inner/outer garments & fasteners.: gets clothes & gets completely dressed without help Toileting - going to the 'toilet room' for urine/bowel elimination & cleaning self/arranging clothes: goes to toilet room, cleans self, arranges clothes without help Transfer: moves in & out of bed and chair without help (may use support object) Continence: controls urination/bowel movements completely by self Feeding: feeds self without help Total Score: 0 Information obtained from: patient Using telephone: independent Traveling: independent Shopping: independent Preparing meals: independent Housework: independent Taking medicine: independent Managing money: independent PHQ-9 Over the last 2 weeks, how often have you been bothered by any of the following problems? 1. Little interest or pleasure in doing things: not at all 2. Feeling down, depressed, or hopeless: not at all 3. Trouble falling or staying asleep, or sleeping too much: not at all 4. Feeling tired or having little energy: not at all 5. Poor appetite or overeating: not at all 6. Feeling bad about yourself - or that you are a failure or have let yourself or your family down: not at all 7. Trouble concentrating on things, such as reading the newspaper or watching television: not at all 8. Moving or speaking so slowly that other people could have noticed. Or the opposite - being so fidgety or restless that you have been moving around a lot more than usual: not at all 9. Thoughts that you would be better off or of hurting yourself in some way: not at all Total score: 0 Depression Screening Interpretation: Negative Depression Screening Done: Yes 56602 - PHQ-9 Billing: Yes Source: Developed by Drs. Deep Chamberlain, Shannon Mckeon, Som Vásquez and colleagues, with an educational aleksandra from [employer]. Review of Systems Const Denies chills and Denies fever(s) ENT Denies epistaxis and Denies nasal discharge Card Denies chest pain Resp Denies chest congestion, Denies cough and Denies hemoptysis GI Denies diarrhea and Denies nausea Skin/Breast Denies rash Neuro Reports no additional complaints Psych Reports no additional complaints Endo Reports no additional complaints Physical Exam Vital Signs: Last Vital Signs Pulse 86 02/28/24 11:06 BP 126/66 02/28/24 11:06 Pulse Ox 96 02/28/24 11:06 Oxygen Delivery Method Room Air 02/28/24 11:06 BMI result Body Mass Index 28.7 Const General: cooperative, comfortable and no acute distress Orientation/consciousness: patient oriented x3 HEENT Head: Yes normocephalic Eyes General: appearance normal, both eyes and all related structures Neck Other: Supple Neck: Yes supple Resp Effort & Inspection: normal respiratory effort, no cough and no stridor Cardio Rhythm: regular rhythm Heart sounds: S1 normal heart sound present and S2 normal heart sound present Skin General skin exam: turgor normal Neuro Other: Motor sensory intact General: patient oriented x3, tone normal and moves all extremities Extrem Other: No lower extremity swelling. Right lower extremity: no edema Left lower extremity: no edema Psych Other: Normal effect, speech clear Assessment & Plan Assessment & Plan (1) Medicare annual wellness visit, subsequent: Code(s): Z00.00 - Encounter for general adult medical examination without abnormal findings (2) Hypertension, essential: Code(s): I10 - Essential (primary) hypertension (3) Dysuria: Code(s): R30.0 - Dysuria (4) Chronic GERD: Code(s): K21.9 - Gastro-esophageal reflux disease without esophagitis Plan Patient is 78 year old female Patient forgot to do labs, she will do them today Patient have impaired fasting sugar diet-controlled is recommended GERD : Currently she is taking [id number] Prilosec HTN : Bp is stable , she is taking Losartan 100 mg , tolerating medication no side effects over weight with BMI of 29.9 Follow-up 6 months labs are needed before visit Orders: Orders UA CC w/rflx Micro + Cult Today R30.0 - Dysuria Complete Blood Count Auto Diff 6 Months I10 - Essential (primary) hypertension, K21.9 - Gastro-esophageal reflux disease without esophagitis Comprehensive Met. Panel 6 Months I10 - Essential (primary) hypertension, K21.9 - Gastro-esophageal reflux disease without esophagitis Hemoglobin A1c 6 Months I10 - Essential (primary) hypertension, K21.9 - Gastro-esophageal reflux disease without esophagitis Quality Reporting (2019) Depression/Bipolar (159/160/161/177) PHQ-9: Total score: 0 Coding Level of Care Code Medicare Subsequent (G0439) Est Pt Level 3 (53593) Diagnoses Medicare annual wellness visit, subsequent Z00.00 Hypertension, essential I10 Dysuria R30.0 Chronic GERD K21.9 CPT Codes Advance Care Planning - Advance Care Planning discussion: On file, no changes ([id number]) Additional Codes PHQ-9 - 31302 - PHQ-9 Billing: Yes ([id number]) Advance Care Planning Advance Care Planning discussion: On file, no changes
[2024-02-28 11:06] VITALS: BP 126/66; PULSE 86; O2SAT 96; BMI 28.7
== END 2024-02-28 11:29 | disposition home or self-care (01) ==
LOC: HO.HMCC 10:54
PROVIDERS: PCP Internal Medicine; Visit Provider Internal Medicine
DX: I10 Essential (primary) hypertension (principal); R30.0 Dysuria; K21.9 Gastro-esophageal reflux disease without esophagitis; Z00.00 Encounter for general adult medical examination without abnormal findings

== ENCOUNTER 2024-05-09 12:42 | Outpatient (AMB) | payer OTHER, MEDICARE, SELFPAY ==
--- NOTE | 2024-05-09 13:04 | MHC.OFFVIS ---
Intake Visit Reasons: recurrent UTI Intake Note: New patient Presents for Recurrent UTI/Dysuria Any Urology Medication: None Antibiotic Allergies:None Blood Thinners: None PVR:0ml Hand Booked Folder And Stitcher Required: No Accompanied by: Self / Same As Patient Allergies codeine Allergy (Unknown, Verified 05/09/24 13:51) Unknown Aspirin Allergy (Unknown, Uncoded 05/09/24 13:51) stomach upset Medication List - Last Reconciled 05/09/24 by ANAYELI Santos acetaminophen (Tylenol) 325 mg PO QID PRN azithromycin For 250 mg dose pack: take 500 mg today (day 1), then 250 mg for 4 days (days 2-5) PO estradiol 0.01%(0.1mg/gram) (Estrace) 1 g vaginal 3XW 90 days ibuprofen (Advil Liqui-Gel) 200 mg PO Q6H PRN losartan 100 mg PO DAILY 90 days HPI Comments Details: Marleen is a very pleasant 78-year-old female patient of . She has a past medical history of degenerative disc disease. She presents to the office today as a new patient for recurrent urinary tract infections. In discussion with the patient today she reports having followed up with her PCP multiple times for ongoing lower urinary tract symptoms she had been experiencing at which time she was noted to have urinary tract infections and completed antibiotic therapy as prescribed however recommendations were made for urology referral for further assessment evaluation. In review of patient's chart it appears urine cultures are as follows: 08/25, 10/15, 12/15, 03/17: E coli She currently denies any bothersome urinary issues or concerns. She denies any UTI like symptoms. In office urinalysis results reviewed with the patient today. PVR 0 mL. When asked she denies any issues with constipation. We discussed potential causes of recurrent urinary tract infections as well as further treatment options and risks and benefits of these treatment options. She denies urinary urgency, urinary frequency, incontinence, nocturia, hematuria, dysuria, foul smelling urine, changes to urinary stream, flank pain, fever, and or chills. She is happy with her current voiding parameters. She otherwise offers no other issues or concerns at this time. [facility] Medical History DDD (degenerative disc disease), lumbosacral Screening for osteoporosis Lumbar back pain with radiculopathy affecting right lower extremity Numbness and tingling of right lower extremity Lower extremity pain, right Social History Housing: House Alcohol intake: never Patient Tobacco Use Status: Never used Tobacco e-Cigarette/Vaping Use: Never Used service: No Current occupational status: unemployed Cognitive needs: No Hearing needs: No Vision needs: No Review of Systems Const All systems reviewed & are unremarkable except as noted in HPI and below Physical Exam Const General: cooperative, healthy appearing, comfortable, no acute distress, well developed, alert and awake Orientation/consciousness: patient oriented x3 Limitations: no limitations HEENT Ears: hearing grossly normal bilaterally Eyes General: appearance normal, both eyes and all related structures Neck Neck: Yes normal visual inspection and Yes trachea midline Chest Chest palpation & inspection: normal inspection of the chest Resp Effort & Inspection: normal respiratory effort and able to speak in complete sentences Cardio Rate: regular rate GI Inspection: Yes normal to inspection General: Yes no CVA tenderness Back/Spine/Pelvis Back: no CVA tenderness Skin General skin exam: no rashes or lesions noted Neuro General: patient oriented x3 Extrem General: Yes normal to inspection Psych Appearance: grossly normal and well kempt Mental Status: mental status grossly normal Speech and movement: Normal speech and movement present and Clear speech present Affect: normal affect Attitude: cooperative Thought process: Normal thought process present Thought content: Normal thought content present Insight: Fair insight present (Psych) Judgement: Fair judgement present (Psych) Office Procedures Post Void Residual Post Residual Void Post Void Residual (PVR): 0 [id number] Void Residual by ultrasound Results AMB Urinalysis, Automated UA Leukoctes 0 Jonathan/uL Last Edit by RY Springer on 05/09/24 13:32 UA Nitrite Negative Last Edit by RY Springer on 05/09/24 13:32 UA Urobilinogen 0.2 mg/dL Last Edit by RY Springer on 05/09/24 13:32 UA Protein 0 mg/dL Last Edit by RY Springer on 05/09/24 13:32 UA pH 6.5 Last Edit by RY Springer on 05/09/24 13:32 UA Blood 0 Sd/uL Last Edit by Elida Amos, A on 05/09/24 13:32 UA Specific [place] 1.005 Last Edit by Elida Amos, A on 05/09/24 13:32 UA Ketone Negative Last Edit by Elida Bentleyro, A on 05/09/24 13:32 UA Bilirubin 0 mg/dL Last Edit by Elidahodan Amos, A on 05/09/24 13:32 UA Glucose 0 mg/dL Last Edit by Elida Amos, RMA on 05/09/24 13:32 Results Reviewed Results Reviewed: Laboratory Last Values Urine pH (Auto) 6.5 05/09/24 13:06 Specific [place] (Auto) 1.005 05/09/24 13:06 Urine Protein (Auto) 0 mg/dL 05/09/24 13:06 Glucose (UA)(Auto) 0 mg/dL 05/09/24 13:06 Urine Ketones (Auto) Negative 05/09/24 13:06 Urine Blood (Auto) 0 Sd/uL 05/09/24 13:06 Urine Nitrite (Auto) Negative 05/09/24 13:06 Urine Bilirubin (Auto) 0 mg/dL 05/09/24 13:06 Urine Urobilinogen (Auto) 0.2 mg/dL 05/09/24 13:06 Leukocyte Esterase (Auto) 0 Jonathan/uL 05/09/24 13:06 Assessment & Plan Assessment & Plan (1) Recurrent UTI: Code(s): N39.0 - Urinary tract infection, site not specified Category: Medical Plan In office urinalysis results reviewed with the patient today; as noted above. PVR 0 mL We discussed at length potential causes of recurrent urinary tract infections as well as further treatment options and risks and benefits of these treatment options. Will obtain retroperitoneal ultrasound for further assessment evaluation. Patient currently denies any UTI like symptoms. Start Estrace cream as discussed and prescribed. Discussed UTI prevention with D mannose supplement, vitamin-C, increasing fluid intake, behavioral therapy with timed voiding, perineal hygiene and postcoital voiding, and management of constipation with stool softeners and increased fiber intake. Follow-up in 3-4 months with imaging and PVR; or sooner with any issues, concerns, and or questions. Orders: Orders AMB Urinalysis Automated Today Z13.9 - Encounter for screening, unspecified AMB Post Void Residual by ultrasound Today N39.0 - Urinary tract infection, site not specified US retroperitoneal comp Today N39.0 - Urinary tract infection, site not specified Medications: New estradiol 0.01%(0.1mg/gram) (Estrace) Apply pea-sized amount to urethra daily x1 month and then 3 times a week thereafter 1 g vaginal 3XW 90 days 42.5 grams 3RF Patient Instructions: The patient had an opportunity to ask questions regarding the treatment plan. All questions were answered. Physical exam, labs, and imaging were discussed and reviewed in detail. As well as risks, benefits, and discussion of treatment choices. No major barriers to understanding were identified. The patient expressed understanding and agreement with the above treatment plan. The patient was made aware they should contact our office by phone for worsening of their current condition, the appearance of new symptoms, or with any questions or concerns. Compliance is encouraged with any medications and follow up testing that is ordered. It is a privilege to be allowed the opportunity to participate in? your urological care.? Again, if you have any questions or concerns If you have any questions or concerns please do not hesitate to contact me. The office is [phone]. This note is constructed using voice recognition software. While every effort has been made to ensure accuracy maxillofacial pathology errors may have been included. Yours sincerely, FREDY Santos-PRIYA Coding Level of Care Code New Pt Level 4 (68921) Diagnoses Recurrent UTI N39.0 CPT Codes Post Residual Void - PVR CPT Code: 26694-Hasa Void Residual by ultrasound ([id number])
== END 2024-05-09 13:47 | disposition home or self-care (01) ==
PROVIDERS: PCP Internal Medicine; Visit Provider Nurse Practitioner Family
DX: N39.0 Urinary tract infection, site not specified (principal); Z13.9 Encounter for screening, unspecified
CPT/HCPCS: 99204

== ENCOUNTER → 2024-05-09 12:42 | Outpatient (BNVA) | payer OTHER, MEDICARE, SELFPAY | PROVIDERS: PCP Internal Medicine; Visit Provider Nurse Practitioner Family | DX: N39.0 Urinary tract infection, site not specified (principal) | CPT/HCPCS: 51798; 81003 ==

== ENCOUNTER 2024-08-27 09:58 | Outpatient (AMB) | payer OTHER, MEDICARE, SELFPAY ==
[2024-08-27 10:05] VITALS: BP 140/74; PULSE 102; O2SAT 97; BMI 30.1
--- NOTE | 2024-08-27 10:05 | A.OFFPC_ITS ---
Vital Signs 08/27/24 10:05 Height 5 ft 3 in Weight 170 lb 2 oz BMI 30.1 BP 140/74 H Blood Pressure Location Rt brachial Position Sitting Pulse 102 H Pulse Source Pulse Oximeter Pulse Oximetry (%) 97 Oxygen Delivery Method Room Air Intake Visit Reasons: 6 months Allergies codeine Allergy (Unknown, Verified 08/27/24 10:05) Unknown Aspirin Allergy (Unknown, Uncoded 08/27/24 10:05) stomach upset Medication List - Last Reconciled 08/27/24 by Natasha Moore MD acetaminophen (Tylenol) 325 mg PO QID PRN azithromycin For 250 mg dose pack: take 500 mg today (day 1), then 250 mg for 4 days (days 2-5) PO azithromycin 250 mg PO ONCE 12 days ciprofloxacin HCl 500 mg PO BID 10 days estradiol 0.01%(0.1mg/gram) (Estrace) 1 g vaginal 3XW 90 days ibuprofen (Advil Liqui-Gel) 200 mg PO Q6H PRN losartan 100 mg PO DAILY 90 days Tobacco use date assessed: 08/27/24 Fall risk assessment: No Falls in past year Last assessed Fall Risk: 08/27/24 Dental Screening Dental Screen Date: 09/14/23 HPI 6 months HPI Details History - The patient is a 79-year-old female pr esenting for follow-up appointment six- month - The patient reports taking Claritin fo r allergies, which led to dry mouth and throat 10 days ago, relieved by drinking water. - The patient began taking a children's cold and cough medication, containing brompheniramine and phenylephrine, which seemed to alleviate symptoms including cough. . - She experiences occasional swelling of the feet - taking her blood pressure medication r egularly, blood pressure is slightly elevated today Problem List - Allergic Rhinitis - hypertension, treated with losartan 10 0 mg daily - obesity with BMI of 30.1 Patient Instructions - Ensure adequate hydration by drinking water regularly . - Take any onvb-nye-leaqccd allergy medi cations as needed. - continue blood pressure medication Review of Systems - General: No fever no chills - Neurological: No headaches no dizziness - Ear nose throat: No sore throat no hearing difficulty no ear pain - Cardiovascular: No syncope, no chest pain, no palpitations - Gastrointestinal: No nausea vomiting or diarrhea - Endocrine: No polyuria polydipsia no heat intolerance - Genitourinary: No dysuria , no blood in urine Physical Exam General: No acute distress HEENT: Congestion noted Neck: Supple Respiratory system: Able to talk in full sentences, no audible wheeze Cardiovascular: S1-S2 regular in rate and rhythm Gastrointestinal: No pain Extremities: Feet swelling noted MANAGER POWER: Alert awake oriented x3 motor sensory intact Skin: Normal turgor [facility] Medical History DDD (degenerative disc disease), lumbosacral Screening for osteoporosis Lumbar back pain with radiculopathy affecting right lower extremity Numbness and tingling of right lower extremity Lower extremity pain, right Social History Housing: House Alcohol intake: never Patient Tobacco Use Status: Never used Tobacco e-Cigarette/Vaping Use: Never Used service: No Current occupational status: unemployed Cognitive needs: No Hearing needs: No Vision needs: No Questionnaire Thrive Questionnaire Date Thrive assessed: 02/07/23 CELIA-7 AMB Questionnaire CELIA-7 Date CELIA - 7 assessed: 02/07/23 Source: Developed by Drs. Deep Chamberlain, Shannon Mckeon, Som Vásquez and colleagues, with an educational aleksandra from [employer]. Physical exam (Primary Care) Vital Signs: Last Vital Signs Pulse 102 H 08/27/24 10:05 BP 140/74 H 08/27/24 10:05 Pulse Ox 97 08/27/24 10:05 Oxygen Delivery Method Room Air 08/27/24 10:05 BMI result Body Mass Index 30.1 Tobacco/Smoking Status: Tobacco use Status Tobacco use date assessed 08/27/24 08/27/24 10:07 Patient Tobacco Use Status Never used Tobacco 08/27/24 10:07 e-Cigarette/Vaping Use Never Used 08/27/24 10:07 Thrive Assessment: Date of Thrive Assessment Date Thrive assessed 02/07/23 08/27/24 10:07 Coding Level of Care Code Est Pt Level 3 (86440) Complex EM visit Add On G2211 Diagnoses Hypertension, essential I10 Chronic GERD K21.9 Osteoarthritis involving multiple joints on both sides of body M15.9 Assessment & Plan Assessment & Plan (1) Hypertension, essential: Code(s): I10 - Essential (primary) hypertension Category: Medical (2) Chronic GERD: Code(s): K21.9 - Gastro-esophageal reflux disease without esophagitis Category: Medical (3) Osteoarthritis involving multiple joints on both sides of body: Code(s): M15.9 - Polyosteoarthritis, unspecified Category: Medical Plan History - The patient is a 79-year-old female presenting for follow-up appointment six- month - The patient reports taking Claritin for allergies, which led to dry mouth and throat 10 days ago, relieved by drinking water. - The patient began taking a children's cold and cough medication, containing brompheniramine and phenylephrine, which seemed to alleviate symptoms including cough. . - She experiences occasional swelling of the feet - taking her blood pressure medication regularly, blood pressure is slightly elevated today Problem List - Allergic Rhinitis - hypertension, treated with losartan 100 mg daily - obesity with BMI of 30.1 Patient Instructions - Ensure adequate hydration by drinking water regularly . - Take any xluy-fhd-dqabzgm allergy medications as needed. - continue blood pressure medication Orders: Orders Vitamin D 25-OH (D2 and D3) 6 Months D64.9 - Anemia, unspecified, I10 - Essential (primary) hypertension, K21.9 - Gastro-esophageal reflux disease without esophagitis, M15.9 - Polyosteoarthritis, unspecified TSH reflex Free T4 6 Months D64.9 - Anemia, unspecified, I10 - Essential (primary) hypertension, K21.9 - Gastro-esophageal reflux disease without esophagitis, M15.9 - Polyosteoarthritis, unspecified Hemoglobin A1c 6 Months D64.9 - Anemia, unspecified, I10 - Essential (primary) hypertension, K21.9 - Gastro-esophageal reflux disease without esophagitis, M15.9 - Polyosteoarthritis, unspecified Complete Blood Count Auto Diff 6 Months D64.9 - Anemia, unspecified, I10 - Essential (primary) hypertension, K21.9 - Gastro-esophageal reflux disease without esophagitis, M15.9 - Polyosteoarthritis, unspecified Comprehensive [place]. Panel Fast 6 Months D64.9 - Anemia, unspecified, I10 - Essential (primary) hypertension, K21.9 - Gastro-esophageal reflux disease without esophagitis, M15.9 - Polyosteoarthritis, unspecified Lipid Panel 6 Months D64.9 - Anemia, unspecified, I10 - Essential (primary) hypertension, K21.9 - Gastro-esophageal reflux disease without esophagitis, M15.9 - Polyosteoarthritis, unspecified Vitamin B12 6 Months D64.9 - Anemia, unspecified, I10 - Essential (primary) hypertension, K21.9 - Gastro-esophageal reflux disease without esophagitis, M15.9 - Polyosteoarthritis, unspecified Medications: Refilled ciprofloxacin HCl 500 mg PO BID 10 days 20 tabs 0RF azithromycin 250 mg PO ONCE 12 days 12 tabs 0RF J06.9 - Acute upper respiratory infection, unspecified Discontinued azithromycin Discontinued Reason: Doctor's Order For 250 mg dose pack: take 500 mg today (day 1), then 250 mg for 4 days (days 2-5) PO 6 tabs 1RF
== END 2024-08-27 12:56 | disposition home or self-care (01) ==
LOC: HO.HMCC 09:58
PROVIDERS: PCP Internal Medicine; Visit Provider Internal Medicine
DX: I10 Essential (primary) hypertension (principal); K21.9 Gastro-esophageal reflux disease without esophagitis; M15.9 Polyosteoarthritis, unspecified

== ENCOUNTER 2024-08-27 09:58 | Outpatient (REF) | payer OTHER, MEDICARE, SELFPAY ==
--- OUTSIDE RECORDS SUMMARY | 2024-08-27 12:02 | XMS_ITS | Patient Health Record ---
Author Organization [facility] [place] Address [address] [place] [address] Care Team Providers Care Rubber Heel And Sole Press Tender Name Role Phone Oscar THOMPSON, Asma Primary Care Provider Luz Zamora Unavailable [phone] Allergies Allergen (clinical drug ingredient) Drug/Non Drug Allergy documented on EMR Reaction Allergy Type Onset Date Status aspirin Aspirin Unknown Drug Allergy Active codeine Codeine Unknown Drug Allergy Active Reason For Referral No Information Medications Medication SIG (Take, Route, Fr equency, Duration) Notes Start Date End Date Status PriLOSEC PRN Active Multivitamin Active Vitamin B Complex Ac tive Vitamin D Active Physical Therapy . . . Sprain foot and ankle right, strain lateral foot, sural neuritis 05/10/2023 Active Losartan Potassium A ctive Medrol edgard 4mg as directed orally a s directed for 6 days 05/10/2023 Active Social History Tobacco Use: Social History Observation Description Date Details (start date - stop date) Never Smoker NA - NA Tobacco Use/Smoking Question Answer Notes Are you a: nonsmoker Additional Findings: Tobacco Non-User Current no n-smoker Alcohol Screen Question Answer Notes Did you have a drink containing alcohol in the p ast year? No Points 0 Interpretation Negative Tobacco use other than smoking: Question Answer Notes Are you an other tobacco user? 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) Active confirmed Problem 381253546 Sural neuritis, right (G57.81) Active confirmed Plan Of Treatment Pending Test Test Name Order Date X ray : Foot, right 3V 03/08/2022 X ray : Foot, right 3V 05/10/2023 X ray : Ankle, right 3V 05/10/2023 Insurance Providers Payer Name Payer Address Payer Phone Subscriber Number Group Number Insured Name Patient Relationship to Insured Coverage Start Date Coverage End Date Blue Benefits [address] [address] [place] [address] [id number] Joaquin Leyva Spouse - patient is the spouse of the insured Medicare National Govt [employer] [facility] [address] [place] [address] [id number] Marlene Leyva Self - patient is the insured Medical (General) History Medical History History ICD Code covid-19 High blood pressure Surgical History Surgery Date(Month/Year)
--- OUTSIDE RECORDS SUMMARY | 2024-08-27 12:02 | XMS_ITS ---
Author Organization [facility] [place] Address [address] [place], [place] [address] Care Team Providers Care Wind Energy Technician Name Role Phone Oscar THOMPSON, Asma Primary Care Provider Luz Zamora [phone] REASON FOR VISIT foot pain Encounters Encounter Location Date Provider Diagnosis [facility] [place] [address] [place] [address] 05/10/2023 Luz Wallace Plan Of Treatment No Information Progress Notes * MICHELLJefrylucia FDOB: 6 (77 yo F)Acc No.[id number]:05/10/2023 Patient:?Marlene Leyva :1945???Age:77 Y???Sex:Female Address:[address] [place], [address] * true * Date:? Generated for Printi ng/Faxing/eTransmitting on:?08/27/2024 12:01 PM EDT
--- OUTSIDE RECORDS SUMMARY | 2024-08-27 12:02 | XMS_ITS ---
[facility] Organization [facility] [place] Address [address] [place] [address] Care Team Providers Care Fryer Operator Name Role Phone Oscar THOMPSON, Asma Primary Care Provider Luz Zamora Unavailable [phone] Allergies Allergen (clinical drug ingredient) Drug/Non Drug Allergy documented on EMR Reaction Allergy Type Onset Date Status aspirin Aspirin Unknown Drug Allergy Active codeine Codeine Unknown Drug Allergy Active REASON FOR VISIT Pcp- 03/16, Foot pain Medications Medication SIG (Take, Route, Fr equency, Duration) Notes Start Date End Date Status PriLOSEC PRN Active Vitamin D Active Physical Therapy . . . Sprain foot and ankle right, strain lateral foot, sural neuritis 05/10/2023 Active Losartan Potassium A ctive Medrol edgard 4mg as directed orally a s directed for 6 days 05/10/2023 Active Multivitamin Active Vitamin B Complex Ac tive Social History Tobacco Use: Social History Observation [...] Problem Status W/U Status Risk Notes Problem 293270337 Sural neuritis, right (G57.81) Active confirmed Vital Signs Height 5 ft 3 in in 05/10/2023 Weight 162 lbs 05/10/2023 BMI 28.69 kg/m2 05/10/2023 Blood pressure systolic 135 mm Hg 05/10/19 24 Blood pressure diastolic 75 mm Hg 024 Encounters Encounter Location Date Provider Diagnosis [facility] [address] [place] [address] 05/10/2023 Luz Wallace Sprain of right foot, initial encounter S93.601A ; Sprain of right ankle, unspecified ligament, initial encounter S93.401A ; Sural neuritis, right G57.81 and Pain, joint, ankle and foot, right M25.571 Assessments Encounter Date Diagnosis (ICD Code) Assessment Notes Treatment Notes Treatment Clinical Notes Section Notes 05/10/2023 Sprain of right foot, initial encounter (ICD-10 - S93.601A) 05/10/2023 Sprain of right ankle, unspecified ligament, initial encounter (ICD-10 - S93.401A) 05/10/2023 Sural neuritis, right (ICD-10 - G57.81) 05/10/2023 Pain, joint, ankle and foot, right (ICD-10 - M25.571) Plan Of Treatment Medication Medication Name Sig Start Date Stop Date Notes Physical Therapy . . . Sprain foot and ankle right, strain lateral foot, sural neuritis 05/10/2023 Medrol edgard 4mg as directed orally a s directed for 6 days 05/10/2023 Pending Test Test Name Order Date X ray : Foot, right 3V 05/10/2023 X ray : Ankle, right 3V 05/10/2023 Next Appt Details Follow Up: prn, Reason: Progress Notes * Marlene GALARZA FDOB: 6 (77 yo F)Acc No.[id number]:05/10/2023 Progress Note Patient:?Autumn Marlene Brandon Provider:?Luz Wallace DPM :1945???Age:77 Y???Sex:Female D ate:05/10/2023 Address: [address], [place], [place] Pcp:Natasha Moore MD Subjective: * Chief Complaints: * ???Pcp- 03/16 Foot pain * HPI: ???Foot Pain:?Nature:?aching , swelling , tenderness ,throbbing burning.?Location:?RIGHT lateral foot and ankle and leg.?Duration:?1 week.?Onset:?states trauma -deep tissue foot and leg massage.?Course:?worse.?Aggrevated:?any pressure , standing, shoes walking.?Treatments:?rest/alter normal daily activity, ice.? * ROS:?General/Constitutional:?Nausea?denies.?Vomiting?denies.?Hunger Thirst?denies.?Loss appetite?denies.?Chills?denies.?Fatigue?denies.?Fever?denies.?Night Sweats?denies.?Unexplained weight loss?denies.?Unexplained weight gain?denies.?HEENTM:?Dentures?denies.?Dizziness?denies.?Glasses/contacts?admits.?Retinopathy?de nies.?Blurred/double vision?denies.?TMJ?denies.?Discharge/drainage?denies.?Implants?denies.?Sore throat?denies.?Dental implants?denies.?Hard of hearing ?denies.?Difficulty chewing/swallowing/speaking?denies.?Nose bleeds?denies.?Sore mouth?admits.?Respiratory:?On Oxygen?denies.?Pneumonia/pleurisy?denies.?Bronchitis?denies.?Emphysema?denies.?C oughing?denies.?Cough blood?denies.?Shortness of breath?denies.?Wheezing?admits.?Cardiovascular:?Pacemaker?denies.?MVP?denies.?WPW?denies.?CHF?denies.?Heart attack?denies.?Septal defect?denies.?Rapid beat?denies.?Chest pain ?denies.?Atrial Fib.?denies.?Murmur/Palpitations?denies.?Gastrointestinal:?Hemorrhoids?denies.?Stomach/Abdominal pain?denies.?Dark blood stool?denies.?Irritable bowel ?denies.?Constipation?denies.?Diarrhea?denies.?Hematology:?Swelling?denies.?Clots?denies.?Varicose Veins?denies.?Bruising?denies.?Bleeding problem?denies.?Genitourinary:?Blood urine?denies.?Frequent/Painfu/urination/bladder control?denies.?Kidney stones?denies.?Infection (UTI)?denies.?Nephropathy?denies.?sex trans dis (STD)?denies.?Prostate?denies.?Musculoskeletal:?Hammertoes?denies.?Bunions?denies.?Back Pain?denies.?Muscle Cramps/ Resting?denies.?Muscle cramps / walking?denies.?Generalized aches and pains?admits.?Weakness?denies.?Integ.:?Khan?denies.?Scars?denies.?Corns/calluses?denies.?Ingrown nails?denies.?Painful nails?denies.?Open Sores?denies.?Rashes?denies.?Neurologic:?Difficulty sleeping?denies.?Brain disorder?denies.?Numbness?admits.?Balance trouble?denies.?Confusion?denies.?Fainting/blackouts?denies.?Tingling?admits.?Tr emors?denies.? * Medical History:? * Surgical History:? * Hospitalization/Major Diagno stic Procedure:?Denies Past Hospitalization * Family History:?Mother: dece ased.?Father: .?Spouse: alive, Heart Problems, diagnosed with Unspecified heart disease.? * Social History:?Tobacco Use:?Tobacco Use/Smoking?Are you a:?nonsmoker ?Additional Findings: Tobacco Non-User?Current non-smoker ?Tobacco use other than smoking?Are you an other tobacco user??No ???Drugs/Alcohol:?Drugs?Have you used drugs other than those for medical reasons in the past 12 months??No ?Alcohol Screen?Did you have a drink containing alcohol in the past year??No ?Points?0 ?Interpretation?Negative ???Miscellaneous:?Caffeine: yes, frequency:tea , 3-5 cups per day. ?Children: yes, 3. ?no Exercise. ?Marital status: . 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 * Medications:?TakingPriLOSEC , Notes: PRNMultivitamin Vitamin B Complex Vitamin D Losartan Potassium Medication List reviewed and reconciled with the patientTaking PriLOSEC , Notes: PRNTaking Multivitamin Taking Vitamin B Complex Taking Vitamin D Taking Losartan Potassium Medication List reviewed and reconciled with the patient * Allergies:?AspirinCodeineyes [Allergies Verified] Objective: * Vitals:?Ht: 5 ft 3 in, Wt:16 2, BMI:28.69, Shoe size:9, BP:135/75 mm Hg. * Examination: ???General Examination: ?GENERAL APPEARANCE:?Reveals a pleasant, alert, well-nourished, well- developed, well hydrated individual, who demonstrates proper attention to hygiene/body habitus, and is in no acute distress, Pt serves as own?historian for office visit today.?ORIENTED:?person, place, and time.?Neurological: ?SENSORY:?Neurological exam reveals intact sensorium, pain sensation normal, vibration sensation intact, pinprick sensation is normal in the lower extremities, Pt denies, anesthesia, burning, paresthesia, tingling, B/L.?TINEL'S COMPRESSION:? Positive Lateral sural nerve distribution Right.?DEEP TENDON REFLEXES:?Achilles, 2/4, B/L.?Vascular: ?DP PULSES:?3/4, B/L.?PT PULSES:?3/4, B/L.?CAPILLARY FILL TIME:?immediate, all digits, B/L.?SKIN TEMPERTURE GRADIENT OF THE LOWER EXTERMITIES:?warm to cool, proximal to distal, B/L.?HAIR GROWTH/TEXTURE/ELASTICITY/TURGOR:?normal, B/L.?PIGMENTATION:?normal, B/L.?EDEMA:?absent, B/L.?Dermatologic: ?SKIN FINDINGS:?Skin exam reveals normal texture, elasticity, and turgor. There are no masses. The interspaces are clear.?Orthopedic: ?MUSCLE STRENGTH:?5/5 all groups in a symmetrical fashion , B/L.?GAIT ABNORMALITY:?antalgic.?FOOT MORPHOLOGY:? Pain on palpation to lateral foot, lateral ankle and lower leg RIGHT.?MPJ PATHOLOGY:? Pain on Metatarsal Palpation 5th RIGHT.?X-Rays - IMAGING REPORT: ?Clinical Indication(s):?Evaluate for Fracture.?Views:?3 views of Foot , AP , LAT , LO , RIGHT 3 views of Ankle RIGHT AP LAT LO.?Findings:?normal bone and soft tissue density consistent for patients age and sex mild generalized decrease in bone density.?Fracture:?Negative fractures identified.? Assessment: * Assessment: 1.?Sprain of right ankle, un specified ligament, initial encounter - S93.401A?2.?Sprain of right foot, initial encounter - S93.601A (Primary), Acute problem, Complicated w/ Multiple Tx Options(4)?3.?Sural neuritis, right - G57.81?4.?Pain, joint, ankle and foot, right - M25.571? Plan: * Treatment: * Procedure Codes:?61595 X-RAY EXAM OF RIGHT FOOT 3V, Modifiers: 26 , [id number] X- RAY EXAM OF RIGHT ANKLE 3V, Modifiers: 26 , RT * Preventive Medicine:? ??Counseling:?Discussion:?-14: Office or other outpatient visit for the evaluation and management of an established patient, which required a medically appropriate history and/or examination and MODERATE level of DECISION MAKING for: 1 OR MORE CHRONIC PROBLEM(S) THATS WORSENING, 2 STABLE CHRONIC PROBLEMS, A NEWLY DIAGNOSED PROBLEM WITH UNCERTAIN PROGNOSIS, AN ACUTE COMPLICATED INJURY WITH MULTIPLE TREATMENT OPTIONS, OR AN ACUTE PROBLEM WITH ACCOMPANYING SYSTEMIC SYMPTOMS, THAT POSE(S) A MODERATE RISK OF MORBIDITY. THIS CONDITION MAY ALSO INCLUDE RX DRUG MANAGEMENT, OR A DECISON FOR MINOR SURGERY. The visit on the day of the encounter encompassed interpreting the data and educating the patient as to the nature of their condition, treatment options available according to their individual PMH, meds, allergies, and overall health/living conditions, as well as any potential risks or complications that may occur from a failure to adhere to, and participate in, the recommended course of therapy. The discussion included a complete verbal, and/or written explanation of the examination results, any x-rays taken, the proposed diagnosis, and outline of the treatment plan. A schedule for future care needs was also explained. The patient verbalized an understanding of the instructions at this time and agreed to be an active participant in their treatment. If the patient should think of any questions or concerns after the visit, I have encouraged the patient to call the office.?P.R.I.C.E.:?The patient was counseled on the use of P.R.I.C.E. and NSAIDS (if well tolerated) to aid in the recovery from their painful condition.?Physical Therapy:?Discussed the potential short and assisted benefits of physical therapy including pain relief, improved function for activity of daily life, return to exercise, increased quality of life. We discussed the usual/customary PT treatment schedule of 2-3 times per week for 4 weeks to as much as 12 weeks depending on insurance approval/coverage. We discussed various PT treatment modalities including, but not limited to, gate training, muscular stabilization, stretching, deep tissue therapeutic massage, ultrasound, TENS, iontophoresis, fluidotherapy, laser therapy, hydrotherapy, contrast ice/heat bath, and passive as well as active ROM exercises. Questions re: PT including visit amounts, rates of success, and goals were answered to the patient's satisfaction. The patient verbally confirmed the medical necessity and use of PT therapy treatment for their MSK condition.?X-rays:?Discussed and reviewed the X-rays with the patient. We discussed how the findings relate to the patients symptoms/complaints. Answered any and all questions..? * Follow Up:?prn * Images: * Sign off status: Completed true * Provider:?Luz Wallace DPM Date:? Generated for Rubin lopez/David/Dukesmitting on:?08/27/2024 12:01 PM EDT History and Physical Notes * HPI (History of Present Illness) Category Sub-Category Detail Notes Category Not es Foot Pain Nature: aching , swellin g , tenderness , throbbing burning Location: RIGHT lateral foot a nd ankle and leg Duration: 1 week Onset: states trauma -deep tissue foot and leg massage Course: worse Aggravated: any pressure , stand ing, shoes walking Treatments: rest/alter normal da carla activity, ice Examination Category Sub-Category Detail Notes Category Not es Neurological SENSORY: Neurological exa m reveals intact sensorium, pain sensation normal, vibration sensation intact, pinprick sensation is normal in the lower extremities, Pt denies, anesthesia, burning, paresthesia, tingling, B/L TINEL'S COMPRESSION: Positive Lateral lindsey ral nerve distribution Right DEEP TENDON REFLEXES: Achilles, 2/4, B/L Dermatologic SKIN FINDINGS: Skin exam reveal s normal texture, elasticity, and turgor. There are no masses. The interspaces are clear Orthopedic GAIT ABNORMALITY: antalgic FOOT MORPHOLOGY: Pain on palpation to lateral foot, lateral ankle and lower leg RIGHT MPJ PATHOLOGY: Pain on Metatarsal P alpation 5th RIGHT MUSCLE STRENGTH: 5/5 all groups in a symmetrical fashion , B/L General Examination GENERAL APPEARANCE: Reveals a pleasant, alert, well- nourished, well-developed, well hydrated individual, who demonstrates proper attention to hygiene/body habitus, and is in no acute distress, Pt serves as own historian for office visit today ORIENTED: person, place, and t arin Vascular DP PULSES (B): 3/4, B/L PT PULSES (B): 3/4, B/L CAPILLARY FILL TIME: immediate, all digi ts, B/L TEMPERTURE GRADIENT (C): warm to cool, p roximal to distal, B/L TROPHIC CONDITION-TEXTURE/ELASTICITY/TURGOR/HAIR GROWTH (B): normal, B/L EDEMA (C): absent, B/L PIGMENTATION: normal, B/L X-Rays - IMAGING REPORT Findings: normal b one and soft tissue density consistent for patients age and sex mild generalized decrease in bone density Fracture: Negative fractures i dentified Views: 3 views of Foot , AP , LAT , LO , RIGHT 3 views of Ankle RIGHT AP LAT LO Clinical Indication(s): Evaluate for Fra cture
[2024-08-27 13:44] LABS: MANUAL DIFF FLAG NO
[2024-08-27 13:48] LABS: Basophils Percent Auto 0.6 % (0-2); Eosinophils Absolute Auto 0.2 X10*3/uL (0.0-0.4); Eosinophils Percent Auto 3.1 % (0-4); Hematocrit 35.4 % (37.0-47.0); Hemoglobin 11.2 g/dl (12.0-16.0); Imm Gran Abs Auto 0.02 X10*3/uL (0.00-0.03); Imm Gran Pct Auto 0.4 % (0.0-0.4); Lymphocytes Absolute Auto 1.4 X10*3/uL (1.2-4.9); Lymphocytes Percent Auto 25.8 % (20-40); Mean Corpuscular HGB Conc 31.6 g/dl (31.0-35.0); Mean Corpuscular Hemoglobin 27.3 pg (27.0-33.0); Mean Corpuscular Volume 86.1 fL (80.0-98.0); Mean Platelet Volume 10.8 fL (9.4-12.3); Monocytes Absolute Auto 0.5 X10*3/uL (0.1-1.2); Monocytes Percent Auto 9.4 % (2-11); Neutrophils Absolute Auto 3.3 x10*3/uL (2.0-8.3); Neutrophils Percent Auto 60.7 % (45-73); Platelet Count 307 X10*3/uL (160-400); Red Blood Count 4.11 X10*6/uL (4.20-5.50); White Blood Count 5.4 X10*3/uL (4.8-10.8)
[2024-08-27 13:57] LABS: Estimated Average Glucose 123 mg/dL; Hemoglobin A1C 120.1952 umol/L; Hemoglobin A1c % 5.9 % (<6.0); Total Hemoglobin (HGBA1C) 2930.6172 umol/L
[2024-08-27 15:19] LABS: Anion Gap 12 (12-20)
[2024-08-27 15:22] LABS: Alanine Aminotransferase 23 U/L (0-31); Albumin Level 4.3 g/dL (3.5-5.0); Aspartate Amino Transferase 30 U/L (5-31); Bilirubin Total 0.4 mg/dL (0.0-1.0); Blood Urea Nitrogen 15 mg/dL (9-16); Calcium 9.5 mg/dL (8.4-10.2); Carbon Dioxide 26 mmol/L (22-29); Chloride 106 mmol/L (96-108); Estimated Glomerular Filt Rate > 60; Glucose Random 98 mg/dL (60-115); Potassium 4.4 mmol/L (3.3-5.1); Sodium 140 mmol/L (135-145); Total Protein 7.5 g/dL (6.5-8.0)
[2024-08-27 17:59] LABS: Alkaline Phosphatase 114 U/L (39-117)
== END 2024-08-27 09:59 | disposition home or self-care (01) ==
LOC: HO.HMGCLDS 09:58
PROVIDERS: PCP Internal Medicine; Visit Provider Internal Medicine
DX: I10 Essential (primary) hypertension (principal); K21.9 Gastro-esophageal reflux disease without esophagitis; M15.9 Polyosteoarthritis, unspecified; Z13.1 Encounter for screening for diabetes mellitus
CPT/HCPCS: 36415; 80053; 83036; 85025

== ENCOUNTER 2025-02-26 09:21 | Outpatient (REF) | payer OTHER, MEDICARE, SELFPAY ==
--- OUTSIDE RECORDS SUMMARY | 2025-02-26 10:22 | XMS_ITS | Patient Health Record ---
Author Organization [facility] Br[facility] Address [address] [place] [address] Care Team Providers Care Votator Machine Operator Name Role Phone Oscar THOMPSON, Asma Primary Care Provider Luz Zamora Unavailable [phone] Allergies Allergen (clinical drug ingredient) Drug/Non Drug [...] edgard 4mg as directed orally a s directed; Duration: 6 days 05/10/2023 Active Social History Tobacco [...] Problem Status W/U Status Risk Notes Problem Localized, primary osteoarthritis of the ankle and/or foot (340010374) Osteoarthritis of right ankle and foot (M19.071) Active confirmed Problem Pain due to varicose veins of lower extremity (320577759) 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
[2025-02-26 13:33] LABS: MANUAL DIFF FLAG NO
[2025-02-26 13:44] LABS: Hematocrit 36.2 % (37.0-47.0); Hemoglobin 11.4 g/dl (12.0-16.0); Imm Gran Abs Auto 0.01 X10*3/uL (0.00-0.03); Imm Gran Pct Auto 0.2 % (0.0-0.4); Lymphocytes Absolute Auto 1.9 X10*3/uL (1.2-4.9); Mean Corpuscular HGB Conc 31.5 g/dl (31.0-35.0); Mean Corpuscular Hemoglobin 27.0 pg (27.0-33.0); Mean Corpuscular Volume 85.6 fL (80.0-98.0); NRBC Abs Auto 0.000 X10*3/uL (0.0-0.012); NRBC Pct Auto 0.0 /100WBC (0.0-0.2); Platelet Count 321 X10*3/uL (160-400); Red Blood Count 4.23 X10*6/uL (4.20-5.50); White Blood Count 6.1 X10*3/uL (4.8-10.8)
[2025-02-26 13:58] LABS: Alanine Aminotransferase 24 U/L (0-31); Albumin Level 4.4 g/dL (3.5-5.0); Alkaline Phosphatase 112 U/L (39-117); Anion Gap 9 (12-20); Aspartate Amino Transferase 31 U/L (5-31); Blood Urea Nitrogen 15 mg/dL (9-16); Calcium 9.5 mg/dL (8.4-10.2); Carbon Dioxide 25 mmol/L (22-29); Chloride 109 mmol/L (96-108); Cholesterol 207 mg/dL (<200); Estimated Glomerular Filt Rate > 60; HDL Cholesterol 72 mg/dL (>40); Potassium 4.4 mmol/L (3.3-5.1); Sodium 139 mmol/L (135-145); Total Protein 7.7 g/dL (6.5-8.0); Triglycerides 85 mg/dL (<150)
[2025-02-26 14:13] LABS: Vitamin B12 840 pg/mL (200-900)
[2025-03-06 06:33] LABS: Vitamin D 25-OH, D2 <4 ng/mL; Vitamin D 25-OH, D3 58 ng/mL; Vitamin D 25-OH, Total 58 ng/mL (30-100)
== END 2025-02-26 09:22 | disposition home or self-care (01) ==
LOC: HO.HMGCLDS 09:21
PROVIDERS: PCP Internal Medicine; Visit Provider Internal Medicine
DX: Z13.1 Encounter for screening for diabetes mellitus (principal); I10 Essential (primary) hypertension; K21.9 Gastro-esophageal reflux disease without esophagitis; D64.9 Anemia, unspecified; M15.9 Polyosteoarthritis, unspecified
CPT/HCPCS: 36415; 80053; 80061; 82306; 82607; 83036; 84443; 85025

== ENCOUNTER 2025-03-04 09:52 | Outpatient (AMB) | payer OTHER, MEDICARE, SELFPAY ==
[2025-03-04 09:56] VITALS: BP 128/80; PULSE 100; RESP 17; TEMP 36.7; O2SAT 98; BMI 29.8
--- NOTE | 2025-03-04 09:56 | AM.OFFVISMDC ---
Intake Vital Signs 03/04/25 09:56 Height 5 ft 3 in Weight 168 lb BMI 29.8 BP 128/80 Blood Pressure Location Rt brachial Position Sitting Respiration 17 Pulse 100 Pulse Source Pulse Oximeter Temp 98.1 F Temp Source Oral Pulse Oximetry (%) 98 Oxygen Delivery Method Room Air Intake Visit Reasons: Medicare Wellness Allergies codeine Allergy (Unknown, Verified 03/04/25 09:56) Unknown Aspirin Allergy (Unknown, Uncoded 03/04/25 09:56) stomach upset Medication List - Last Reconciled 03/04/25 by Natasha Moore MD acetaminophen (Tylenol) 325 mg PO QID PRN estradiol 0.01%(0.1mg/gram) (Estrace) 1 g vaginal 3XW 90 days ibuprofen (Advil Liqui-Gel) 200 mg PO Q6H PRN losartan 100 mg PO DAILY 90 days HPI Medicare Wellness HPI Details History of Present Illness The patient is a 79-year-old female presenting for a Medicare wellness visit. Medicare Annual Wellness Visit: - The patient reports her last eye exam was in October. - She had a mammogram last year - Her blood pressure is noted to be very good. Health Maintenance: - The patient takes a daily multivitamin with iron. - only want blood test to be done annually - She has not received a flu vaccine this season. And do not want to get it Diagnostic Results: - Labs: - LDL cholesterol: 118 mg/dL. - Vitamin B12: Normal. - Thyroid function tests: Normal. - Vitamin D: Pending. - Other Studies: - Blood pressure: Noted to be very good. - Mammogram: Performed last year. - Eye exam: Performed in October. Plan - Continue daily multivitamin with iron. - Obtain a flu vaccine. - Schedule an appointment for annual blood tests. HPI Comments History of Present Illness Details AWV Medical/social history reviewed Past medical history reviewed [place] of care / care team list updated Surgical/ hospitalization history reviewed Current medications including OTC and supplements reviewed Family history reviewed Tobacco controlled form updated Alcohol use form updated Illicit drug use in social history reviewed Current diagnosis of depression ?screening updated Appropriate PHQ 2/PHQ-9 completed . Vital signs reviewed Alcohol tobacco drug use reviewed and discussed . MMSE completed . ? Fall risk: ?Assessed Fall history: ?None Have you had any falls with injury in the past year?? No Have you had 2 or more falls in the past year?? No Fall risk assessment completed Home safety discussed with the patient Functional ability assessed and discussed and documented Activities of daily living reviewed and appropriate actions taken . HRA filled out by the patient reviewed by provider and scanned . Appropriate written screening schedule established . Any health advise needed provided . Advance care planning , last forms in the chart, healthcare proxy paperwork handed to patient Examination IPPE/AWE: Balance : Intact Romberg failed Tandem walk failed walk-in turn failed rise from sit to stand intact . ?Hearing ?whisper test failed , . Medication list reviewed, patient is stable on medications All other providers patient is seeing discussed and noted . [facility] Medical History DDD (degenerative disc disease), lumbosacral Screening for osteoporosis Lumbar back pain with radiculopathy affecting right lower extremity Numbness and tingling of right lower extremity Lower extremity pain, right Social History Housing: House Alcohol intake: never Patient Tobacco Use Status: Never used Tobacco e-Cigarette/Vaping Use: Never Used service: No Current occupational status: unemployed Cognitive needs: No Hearing needs: No Vision needs: No Questionnaire Medicare Wellness Checkup [age] What gender do you identify with?: female During the past 4 weeks, how much have you been bothered by emotional problems such as feeling anxious, depressed, irritable, sad or downhearted, and blue?: not at all During the past 4 weeks, has your physical & emotional health limited your social activities with family, friends, neighbors, or groups?: slightly During the past 4 weeks, how much bodily pain have you generally had?: very mild pain During the past 4 weeks, was someone available to help you if you needed & wanted help?: no, not at all During the past 4 weeks, what was the hardest physical activity you could do for at least 2 minutes?: heavy Can you get to places out of walking distance without help? (For eg., can you travel alone on buses, taxis or drive your car?): Yes Can you go shopping for groceries or clothes without someone's help?: Yes Can you prepare your own meals?: Yes Can you do your housework without help?: Yes Because of any health problems, do you need the help of another person with your personal care needs such as eating, bathing, dressing or getting around the house?: No Can you handle your own money without help?: Yes During the past 4 weeks, how would you rate your health in general?: good During the past 4 weeks how have things been going for you?: pretty well Are you having difficulties driving your car?: not applicable, I don't use a car During past 4 weeks, have you been bothered by the following: never: Falling or dizzy when standing up, Sexual problems?, Trouble eating well?, Teeth or denture problems?, Problems using the telephone? and Tiredness or fatigue? Have you fallen 2 or more times in the past year?: No Are you afraid of falling?: No Are you a smoker?: no During the past 4 weeks, how many drinks of wine, beer, or other alcoholic beverages did you have?: no alcohol at all Do you exercise for about 20 minutes 3 or more times a week?: no, I usually do not exercise this much Have you been given information to help with the following?: no: Hazards in your house that might hurt you? and no: Keeping track of your medications? How often do you have trouble taking medicines the way you have been told to take them?: I always take medicine as prescribed How confident are you that you can control & manage most of your health problems?: very confident What is your race?: Mini Mental State Exam (MMSE) Orientation What is the (year) (season) (date) (day) (month)?: year, season, date, day and month Where are we (state) (county) (town or city) (hospital) (floor)?: state, county, town or city, hospital/clinic and floor Score Score: 10 Activity of Daily Living Bathing - sponge bath, tub bath or shower: receives no assistance (gets in/out by self, if usual bathing means Dressing - getting clothes from closets & drawers, including inner/outer garments & fasteners.: gets clothes & gets completely dressed without help Toileting - going to the 'toilet room' for urine/bowel elimination & cleaning self/arranging clothes: goes to toilet room, cleans self, arranges clothes without help Transfer: moves in & out of bed and chair without help (may use support object) Continence: controls urination/bowel movements completely by self Feeding: feeds self without help Total Score: 0 Information obtained from: patient Using telephone: independent Traveling: independent Shopping: independent Preparing meals: independent Housework: independent Taking medicine: independent Managing money: independent PHQ-9 Over the last 2 weeks, how often have you been bothered by any of the following problems? 1. Little interest or pleasure in doing things: not at all 2. Feeling down, depressed, or hopeless: not at all 3. Trouble falling or staying asleep, or sleeping too much: not at all 4. Feeling tired or having little energy: not at all 5. Poor appetite or overeating: not at all 6. Feeling bad about yourself - or that you are a failure or have let yourself or your family down: not at all 7. Trouble concentrating on things, such as reading the newspaper or watching television: not at all 8. Moving or speaking so slowly that other people could have noticed. Or the opposite - being so fidgety or restless that you have been moving around a lot more than usual: not at all 9. Thoughts that you would be better off or of hurting yourself in some way: not at all Total score: 0 Depression Screening Interpretation: Negative Depression Screening Done: Yes 23637 - PHQ-9 Billing: Yes Source: Developed by Drs. Deep Chamberlain, Shannon Mckeon, Som Vásquez and colleagues, with an educational aleksandra from [employer]. Physical Exam Vital Signs: Last Vital Signs Temp 98.1 F 03/04/25 09:56 Pulse 100 03/04/25 09:56 Resp 17 03/04/25 09:56 BP 128/80 03/04/25 09:56 Pulse Ox 98 03/04/25 09:56 Oxygen Delivery Method Room Air 03/04/25 09:56 BMI result Body Mass Index 29.8 Assessment & Plan Assessment & Plan (1) Medicare annual wellness visit, subsequent: Code(s): Z00.00 - Encounter for general adult medical examination without abnormal findings (2) Hypertension, essential: Code(s): I10 - Essential (primary) hypertension (3) Chronic GERD: Code(s): K21.9 - Gastro-esophageal reflux disease without esophagitis Plan History of Present Illness The patient is a 79-year-old female presenting for a Medicare wellness visit. Medicare Annual Wellness Visit: - The patient reports her last eye exam was in October. - She had a mammogram last year - Her blood pressure is noted to be very good. Health Maintenance: - The patient takes a daily multivitamin with iron. - only want blood test to be done annually - She has not received a flu vaccine this season. And do not want to get it Diagnostic Results: - Labs: - LDL cholesterol: 118 mg/dL. - Vitamin B12: Normal. - Thyroid function tests: Normal. - Vitamin D: Pending. - Other Studies: - Blood pressure: Noted to be very good. - Mammogram: Performed last year. - Eye exam: Performed in October. Plan - Continue daily multivitamin with iron. - Obtain a flu vaccine. - Schedule an appointment for annual blood tests. Quality Reporting (2019) Depression/Bipolar (159/160/161/177) PHQ-9: Total score: 0 Coding Level of Care Code Medicare Subsequent (G0439) Diagnoses Medicare annual wellness visit, subsequent Z00.00 Hypertension, essential I10 Chronic GERD K21.9 CPT Codes Advance Care Planning - Advance Care Planning discussion: On file, no changes ([id number]) Additional Codes PHQ-9 - 79598 - PHQ-9 Billing: Yes ([id number]) Advance Care Planning Advance Care Planning discussion: On file, no changes
--- OUTSIDE RECORDS SUMMARY | 2025-03-04 11:14 | XMS_ITS | Patient Health Record ---
Author Organization [facility] Address [address] [place] [address] Care Team Providers Care Production Reproduction Manager Name Role Phone Oscar THOMPSON, Asma Primary Care Provider Luz Zamora Unavailable [phone] Allergies Allergen (clinical drug ingredient) Drug/Non Drug [...] primary osteoarthritis of the ankle and/or foot (954897102) Osteoarthritis of right ankle and foot (M19.071) Active confirmed Problem Pain due to varicose veins of lower extremity (548523678) Varicose veins of right lower extremity with [...] Coverage End Date Blue Benefits [address] [address] [place] [address] [id number] Joaquin Leyva Spouse - patient is the spouse of the insured Medicare National Govt [employer] [facility] [address] [place] [address] [id number] Marlene Leyva Self - patient is the insured Medical (General) History Medical History History ICD Code covid-19 High blood pressure Surgical History Surgery Date(Month/Year)
== END 2025-03-04 10:27 | disposition home or self-care (01) ==
LOC: HO.HMCC 09:53
PROVIDERS: PCP Internal Medicine; Visit Provider Internal Medicine
DX: Z00.00 Encounter for general adult medical examination without abnormal findings (principal); I10 Essential (primary) hypertension; K21.9 Gastro-esophageal reflux disease without esophagitis

== ENCOUNTER → 2025-03-04 09:52 | Outpatient (BNVA) | payer OTHER, MEDICARE, SELFPAY | PROVIDERS: PCP Internal Medicine; Visit Provider Internal Medicine | DX: Z00.00 Encounter for general adult medical examination without abnormal findings (principal); I10 Essential (primary) hypertension; K21.9 Gastro-esophageal reflux disease without esophagitis | CPT/HCPCS: 96127 ==